=== PATIENT | female | born 1985 | race Caucasian/White ===

== ENCOUNTER 2020-07-12 16:35 | Emergency (ER) | payer OTHER, SELFPAY ==
[2020-07-12 16:48] VITALS: BP 137/89; PULSE 75; RESP 16; TEMP 36.7; O2SAT 99
--- NOTE | 2020-07-12 16:53 | ED.URI ---
HPI - URI/Sore Throat General Chief Complaint: Upper Respiratory Infection Stated Complaint: sore throat/chills/cough/[place] Time Seen by Provider: 07/12/20 16:53 Source: patient Mode of arrival: ambulatory Limitations: no limitations History of Present Illness HPI Narrative: Mihai Davis is a 35 yo female with a PMH of GERD for gastric sleeve who coms with fever, aches, chills, cough, headache that started o Thursday. 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 she has 2 children and her sister 5 years ago and she has her 3 teenaged children also Plan: test for strep and flu Related Data Home Medications Medication Instructions Recorded Confirmed omeprazole 20 mg PO DAILY 07/12/20 07/12/20 Allergies Allergy/AdvReac Type Severity Reaction Status Date / Time codeine Allergy Severe Other Verified 07/12/20 16:54 latex Allergy Mild RASH Verified 07/12/20 16:54 Lobster Allergy Mild SWELLING Uncoded 01/06/17 13:09 Shrimp Allergy Mild SHELLFISH Uncoded 01/06/17 13:09 CAUSE SWELLING Review of Systems Review of Systems: Narrative: CONSTITUTIONAL: Has fever, chills, sweats. EYES: Denies visual changes, redness, discharge. ENT: Denies rhinorrhea, has congestion, has sore throat, mild otalgia. CARDIOVASCULAR: Denies chest pain, palpitations, edema. RESPIRATORY: Denies dyspnea, wheezing, cough GASTROINTESTINAL: Denies abdominal pain, nausea, vomiting, diarrhea. GENITOURINARY: Denies dysuria, hematuria, abnormal discharge SKIN: Denies rash or itching. NEUROLOGIC: Denies numbness, or focal weakness. PSYCHIATRIC: Denies anxiety or depression. [facility] Past Medical History Medical History (Updated 07/12/20 @ 17:07 by Aziza Hernandez CNP) GERD (gastroesophageal reflux disease) Surgical History Surgical History (Updated 07/12/20 @ 17:03 by Aziza Hernandez CNP) H/O gastric bypass Family History Family History Father Hypertension Family history of elevated blood lipids Family history of cardiovascular disease Family history of throat cancer Mother Hypertension Grandparent Cerebrovascular accident Family history of malignant neoplasm of breast Family history of coronary artery disease Diabetes mellitus Other Family history of arthritis Family history of congestive heart failure Family history of malignant melanoma Social History Social History Second hand tobacco smoke exposure: No Alcohol intake: current Comments At time of signature, I agree with nursing past medical, surgical, social and family history. There is no relevant family history pertinent to the presenting complaint. Exam Narrative: Exam Narrative: GENERAL: This is a well-nourished, well-developed patient, in mild distress. HEAD: normocephalic, atraumatic. EYES: Sclera clear/white. Vision is grossly intact. EARS: External ears normal, auditory canals clear and without drainage, TMs normal without perforation. Hearing grossly intact. NOSE: External nose normal without nasal discharge, nares without redness, no rhinorrhea. THROAT: Mucous membranes moist, posterior pharynx erythema with no exudate NECK: Neck supple, CARDIOVASCULAR: Regular rate and rhythm without murmurs, gallops, or rubs. RESPIRATORY: Clear to auscultation. Breath sounds equal bilaterally. No wheezes, rales, or rhonchi. GASTROINTESTINAL: Abdomen soft, SKIN: warm, intact with no suspicious lesions or rash, good texture and turgor. NEURO: awake, alert, and oriented to person, place and time. There were no obvious focal neurologic abnormalities. Steady gait EXTREMITIES: Normal range of motion. BACK: Nontender without deformity Course Course Emergency Course: Patient came to E
== END 2020-07-12 17:25 | disposition home or self-care (01) ==
PROVIDERS: Emergency Provider Nurse Practitioner; PCP Physician Assistant
DX: J06.9 Acute upper respiratory infection, unspecified (principal); Z20.828 Contact with and (suspected) exposure to other viral communicable diseases; K21.9 Gastro-esophageal reflux disease without esophagitis; Z98.84 Bariatric surgery status
CPT/HCPCS: 87081; 87804; 87880; 99213; G0463

== ENCOUNTER 2020-12-03 16:00 | Outpatient (CLI) | payer OTHER, SELFPAY ==
--- NOTE | ~2020-12-03 | XR_ITS ---
EXAMINATION: XR hand LT min 3V DATE: 12/03/2020 16:18 INDICATION: Left hand pain and swelling post fall TECHNIQUE: Posteroanterior, oblique and lateral views of the left hand were obtained. COMPARISON: None. FINDINGS: Alignment is normal. No fracture. Joint spaces are normal. Soft tissues are unremarkable. IMPRESSION: 1. Negative left hand radiographs. Reviewed, dictated and finalized at location B.
== END 2020-12-03 16:01 | disposition home or self-care (01) ==
LOC: ANHIMG 16:07
PROVIDERS: PCP Physician Assistant; Visit Provider Student in an Organized Health Care Education/Training Program
DX: M79.89 Other specified soft tissue disorders (principal)
CPT/HCPCS: 73130

== ENCOUNTER 2022-12-17 01:26 | Day surgery (SDC) | payer OTHER, SELFPAY ==
[2022-12-15 13:05] VITALS: BMI 50.8
--- NOTE | 2022-12-15 13:11 | PC.NURSE ---
Report to the Outpatient Waiting Room, entrance under the green pavilion located off [facility], at time 1300 on date 12/17/22. Planned Procedure Time: 1500. Time changes happen often and if your time is changed the preop area will call you the afternoon before. - You and your visitor will be asked to self-screen and do not enter if you have any COVID symptoms. - A mask is optional within the hospital at this time. Patients may have clear liquids (water, carbonated beverages, clear teas, apple juice) until 3 hours prior to surgery with a maximum of 20 ounces. - No food from midnight until time of surgery Take the following medications with a SIP of water the morning of surgery: BUPROPION DO NOT STOP ANY OF YOUR OTHER PRESCRIPTION MEDICATIONS PRIOR TO SURGERY?EXCEPT THE FOLLOWING Medications to discontinue per physician: N/A Date to take last dose: N/A Please no make-up, nail northern irish, hairspray, perfume, deodorant, or body powder the day of surgery. No jewelry (including any body piercings) or valuables the day of surgery, leave them at home. Please take a shower or bath the night before, or the morning of, surgery with an antibacterial soap. Wear comfortable, loose fitting clothing. - Jewelry must be removed prior to entering the operating room. Rings and piercings that are not removed may be cut off. - The hospital will not accept responsibility for valuables. - Please leave all valuables, including medications, at home the day of surgery. If you are going home after surgery, a licensed crude oil driver must drive you home. - NO public transportation without another adult if you receive anesthesia. - We recommend that an adult stay with you for 24 hours following discharge. - We also recommend that you do not drive, make important decision, drink alcoholic beverages, or take any drugs that were not prescribed by your health care provider for at least 24 hours after your discharge time. Follow any additional instructions given to you from your surgeon. If you or anyone in your household have experienced Covid symptoms in the past week, please notify your surgeon or the nurse liaison at the phone number below for possible testing. Telephone instructions given to PT - DESTIN ALAN and asked if any additional questions and then verbalized understanding. Patient advised to call surgeon office or pre surgery nurse liaison [phone] if any additional questions.
[2022-12-17 12:00] VITALS: BP 147/94; PULSE 79; RESP 16; TEMP 36.2; O2SAT 100; BMI 52.1
[2022-12-17] MEDS: LACTATED RINGERS 1,000 ML 30 ML IV CONT (12:25)
[2022-12-17] MEDS: ACETAMINOPHEN 500 MG TABLET 1000 MG PO (12:31)
--- NOTE | 2022-12-17 12:46 | PM.IMHP ---
H&P: HPI History of Present Illness Date/Time: 12/17/22 12:46 Chief Complaint: Pain and bleeding Narrative: 37 y/o who has had a tubal ligation and endometrial ablation several years ago. She has begun to have heavy, painful episodes of vaginal bleeding which have not responded to two different combined oral contraceptives. She is interested in surgical management of her problem. Review of Systems Review of Systems: All systems reviewed & are unremarkable except as noted in HPI and below PMFSH Past Medical History Medical History GERD (gastroesophageal reflux disease) Obesity Surgical History Surgical History H/O gastric bypass History of bilateral tubal ligation History of cardiac radiofrequency ablation History of delivery History of cholecystectomy History of endometrial ablation History of tonsillectomy Family History Family History Father Hypertension Family history of elevated blood lipids Family history of cardiovascular disease Family history of throat cancer Mother Hypertension Grandparent Cerebrovascular accident Family history of malignant neoplasm of breast Family history of coronary artery disease Diabetes mellitus Other Family history of arthritis Family history of congestive heart failure Family history of malignant melanoma Social History Social History Smoking status: Never smoker Second hand tobacco smoke exposure: No Alcohol intake: current Drinks per week: 4 Substance use: never Substance use type: does not use Living arrangements: with family Additional living arrangements comments: CHILDREN Spiritual care concerns: No Meds Home Medications and Allergies Home Medications Medication Instructions Recorded Confirmed Type omeprazole 20 mg tablet,delayed 20 mg PO DAILY 07/12/20 12/15/22 History release bupropion HCl 300 mg 24 hr tablet, 300 mg PO DAILY 12/15/22 12/15/22 History extended release semaglutide (weight loss) 0.25 0.25 mg subcut WEEKLY 12/15/22 12/15/22 History mg/0.5 mL subcutaneous pen injector (Wegovy) Allergies Allergy/AdvReac Type Severity Reaction Status Date / Time codeine Allergy Severe Other Verified 12/15/22 13:04 latex Allergy Mild RASH Verified 12/15/22 13:04 Lobster Allergy Mild SWELLING Uncoded 12/15/22 13:04 Shrimp Allergy Mild SHELLFISH Uncoded 12/15/22 13:04 CAUSE SWELLING Exam Const: Orientation/consciousness: patient oriented x3 Other: Well-developed, well-nourished female in no acute distress. Neck: Thyroid: thyroid normal Lymphatic: no lymphadenopathy noted (in neck, axilla or inguinal nodes) Resp: Effort & Inspection: normal respiratory effort Auscultation: clear to auscultation bilaterally Cardio: Rate: regular rate Rhythm: regular rhythm Heart sounds: S1 normal heart sound present and S2 normal heart sound present GI: Other: ABD: Soft, nontender, nondistended. No guarding or rebound tenderness. No hepatosplenomegaly. : General: Yes no CVA tenderness Other: External genitalia: normal female hair distribution, without lesion. Urethral meatus: no lesion, non prolapsed. Bladder: no mass, nontender Vagina: well-estrogenized, without lesion or discharge. No cystocele or rectocele. Cervix: no lesion or discharge. Uterus: small, anteverted, freely mobile, nontender Adnexa: no mass or tenderness. Anus/perineum: no lesions, nontender Back/Spine/Pelvis: Back: no CVA tenderness Skin: General skin exam: normal color and no rashes or lesions noted Neuro: General: patient oriented x3 Extrem: Other: Extremities: nontender with no edema Psych: Mental Status: mental status grossly normal Affect: normal affect Assessment and
--- NOTE | 2022-12-17 12:50 | WPDHPUPDATE1 ---
History and Physical Update Update Date/Time: 12/17/22 12:50 History and Physical has been reviewed, including an updated exam of the patient. There are NO changes in the patient's condition. Risks, benefits, and alternatives have been discussed and questions answered. Patient agrees to proceed with procedure.
--- NOTE | 2022-12-17 13:29 | WPDANESEPPF ---
Anes - Initial Pre Proc Eval Procedure: Operation Date: 12/17/22 15:00 Proposed Procedures p Hysteroscopy Dilation and Curettage - Home Anderson MD Date/Time: 12/17/22 13:29 Surgeon: Home Anderson MD Pre Op Diagnosis: Excessive Bleeding Patient Data Age: 37 Gender: F Height: 1.68 m Weight: 146.5 kg Last Vital Signs Temp 36.2 C L 12/17/22 12:00 Pulse 79 12/17/22 12:00 Resp 16 12/17/22 12:00 BP 147/94 H 12/17/22 12:00 Pulse Ox 100 12/17/22 12:00 O2 Del Method Room Air 12/17/22 12:00 Allergies Allergy/AdvReac Type Severity Reaction Status Date / Time codeine Allergy Severe Other Verified 12/17/22 12:50 latex Allergy Mild RASH Verified 12/17/22 12:50 shellfish derived Allergy Mild Swelling Verified 12/17/22 12:51 Lobster Allergy Mild SWELLING Uncoded 12/15/22 13:04 Shrimp Allergy Mild SHELLFISH Uncoded 12/17/22 12:50 CAUSE SWELLING Home Medications Medication Instructions Recorded Confirmed Type omeprazole 20 mg tablet,delayed 20 mg PO DAILY 07/12/20 12/15/22 History release bupropion HCl 300 mg 24 hr tablet, 300 mg PO DAILY 12/15/22 12/15/22 History extended release semaglutide (weight loss) 0.25 0.25 mg subcut WEEKLY 12/15/22 12/15/22 History mg/0.5 mL subcutaneous pen injector (Wegovy) Patient hx anesthesia problems: none Family hx anesthesia problems: none Results Review: All pre-operative results and documents have been reviewed as part of the pre-operative evaluation. [facility] Past Medical History Medical History (Updated 12/17/22 @ 13:29 by Ruperto Tiwari MD) GERD (gastroesophageal reflux disease) Morbid obesity Surgical History Surgical History H/O gastric bypass History of bilateral tubal ligation History of cardiac radiofrequency ablation History of delivery History of cholecystectomy History of endometrial ablation History of tonsillectomy Family History Family History Father Hypertension Family history of elevated blood lipids Family history of cardiovascular disease Family history of throat cancer Mother Hypertension Grandparent Cerebrovascular accident Family history of malignant neoplasm of breast Family history of coronary artery disease Diabetes mellitus Other Family history of arthritis Family history of congestive heart failure Family history of malignant melanoma Social History Social History Smoking status: Never smoker Second hand tobacco smoke exposure: No Alcohol intake: current Drinks per week: 4 Substance use: never Substance use type: does not use Living arrangements: with family Additional living arrangements comments: CHILDREN Spiritual care concerns: No Anes - Eval Final PreProcedure Day of Procedure 12/17/22 13:29 Patient weight: morbidly obese Heart: regular rate and rhythm Lungs: clear to auscultation Airway: Mallampati scale class II Neurological: alert and oriented Last oral intake: >/= 8 hours ASA classification: III Emergent: no Anesthetic plan: proceed Anesthesia type and monitoring: general GIVS and standard monitoring Results Review: All pre-operative results and documents have been reviewed as part of the pre-operative evaluation. Informed Consent: The patient's anesthetic plan and its attendant risks and benefits were discussed with the patient/family/POA. Questions were solicited and answers provided to the satisfaction of the patient/family/POA.
[2022-12-17] MEDS: LIDOCAINE HCL 1% LOCAL INJ 20 ML VIAL 10 ML INFILTRATE (14:53)
--- NOTE | 2022-12-17 15:12 | P.OP_ITS ---
Procedure Note - Detailed Date of Procedure 12/17/22 Pre-op Diagnosis Menometrorrhagia Dysmenorrhea Post-op Diagnosis Same Procedure Performed Hysteroscopy Dilation and sharp curettage Surgeon Home Anderson MD Anesthesia MAC and Local (paracervical block with 1% lidocaine) Findings Cervix already dilated with a clot passing through the cervix at the start of the procedure. Thick endometrial tissue. Both tubal ostia seen. No obvious endometrial masses seen. Description of Procedure The patient was taken to the operating room where she was prepared and draped in the usual sterile fashion in the dorsal lithotomy position. A sterile speculum was placed into the vagina. A clot in the cervix was grasped with a ring forceps and removed and passed off to go with the specimen. The anterior lip of the cervix was grasped with single-tooth tenaculum. Ten mL of 1% lidocaine was administered in a paracervical block. The cervix did not require dilation. Hysteroscopy was performed using sterile saline as a distention medium. Findings are as noted above. Sharp curettage was then performed, and endometrial curettings were collected on a Telfa pad and passed off to be sent to pathology. Hemostasis was excellent. Sponge, lap, needle and instrument c ounts were correct. The patient was awakened and taken to the recovery room in stable condition. I was present and scrubbed through the entire procedure. Implants None Estimated Blood Loss 30 Drains No Packing No Pathology Yes (Endometrial curettings) Complications None Condition Stable Disposition PACU
[2022-12-17 15:13] VITALS: BP 136/80; PULSE 65; RESP 16; TEMP 36.3; O2SAT 100
[2022-12-17] MEDS: fentaNYL CITRATE INJ (*CRX) 100 MCG/2 ML VIAL 25 MCG IV PUSH ×2 (15:20→15:30)
[2022-12-17 15:43] VITALS: BP 136/80; PULSE 68; RESP 18; O2SAT 100
[2022-12-17 16:15] VITALS: BP 136/80; PULSE 68; RESP 16
== END 2022-12-17 16:25 | disposition home or self-care (01) ==
PROVIDERS: PCP Physician Assistant; Visit Provider Obstetrics & Gynecology
PROC: 0U5B8ZZ Destruction of Endometrium, Via Natural or Artificial Opening Endoscopic (ICD-10-PCS; CPT 58563; principal; 2022-12-17 15:00)
DX: N92.1 Excessive and frequent menstruation with irregular cycle (principal); N94.6 Dysmenorrhea, unspecified; K21.9 Gastro-esophageal reflux disease without esophagitis; Z79.899 Other long term (current) drug therapy; E66.01 Morbid (severe) obesity due to excess calories; Z68.43 Body mass index [BMI] 50.0-59.9, adult; Z98.84 Bariatric surgery status
CPT/HCPCS: 58558; 88305; A9270; J1885; J2250; J2704; J3010; J7120

== ENCOUNTER 2023-09-07 13:20 | Outpatient (CLI) | payer OTHER, SELFPAY ==
--- NOTE | ~2023-09-07 | MM_ITS ---
EXAMINATION: MM screening [facility] BI w madan HISTORY: Screening mammogram TECHNIQUE: Craniocaudal and mediolateral oblique 3-D tomosynthesis images were obtained and synthetic 2-D images were generated. CAD analysis was submitted and interpreted. COMPARISON: 03/29/2019 BREAST PARENCHYMAL COMPOSITION: There are scattered areas of fibroglandular density. FINDINGS: An intramammary lymph node is noted in the upper quadrant of the right breast. No suspiciou s mass, calcification, or architectural distortion are identified in either breast to suggest maligna ncy. There has been no suspicious interval change. IMPRESSION: 1. No mammographic evidence of malignancy. 2. Recommend routine screening mammography in one year. BI-RADS Category 2: Benign finding(s). Reviewed, dictated and finalized at location A. 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
== END 2023-09-07 13:21 | disposition home or self-care (01) ==
LOC: ANHIMG 13:24
PROVIDERS: PCP Physician Assistant; Visit Provider Obstetrics & Gynecology
DX: Z12.31 Encounter for screening mammogram for malignant neoplasm of breast (principal)
CPT/HCPCS: 77063; 77067

== ENCOUNTER 2024-12-11 08:53 | Emergency (ER) | payer BC, SELFPAY ==
--- NOTE | ~2024-12-11 | XR_ITS ---
XR chest 2V Ordering provider: SEA Mary History: 39 years Female with . cough x4 days, diminished Bilat bases/sob . Comparison: June 23, 2018 FINDINGS: MEDIASTINUM: The cardiac silhouette is not enlarged. LUNGS: No effusions or pneumothorax. Opacification in the right upper lobe suggestive of pneumonia. OTHER: No free air under the diaphragm. IMPRESSION: Right upper lobe pneumonia. Reviewed, dictated and finalized at location A. IMPRESSION: Right upper lobe pneumonia.
--- OUTSIDE RECORDS SUMMARY | 2024-12-11 08:56 | XMS_ITS | Clinical Summary ---
Author Organization [facility] Address [address] [place] [address] Care Team Providers Care Television Engineering Teacher Name Role Phone Unavailable Primary Care Provider Unavailabl e Medications semaglutide, weight loss, (Wegovy) 1.7 mg/0.75 mL Pen Injector Inject 1 pen injector subcutaneously once a week. 3 mL 4 Active tirzepatide, weight loss, (Zepbound) 2.5 mg/0.5 mL Pen Injector Inject 2.5 mg by subcutaneous injection every 7 days. 2 mL 07/17/2024 2:28 PM WHEEL INSPECTOR 4 Active tirzepatide, weight loss, (Zepbound) 5 mg/0.5 mL Pen Injector Inject 5 mg by subcutaneous injection every 7 days. 2 mL 08/02/2024 5:43 PM WHEEL INSPECTOR 4 Active tirzepatide, weight loss, (Zepbound) 5 mg/0.5 mL Pen Injector Inject 5 mg by subcutaneous injection every 7 days. 2 mL 4 Active tirzepatide, weight loss, (Zepbound) 7.5 mg/0.5 mL Pen Injector Inject 7.5 mg under the skin every 7 days. 2 mL 1 08/03/2024 6:26 PM WHEEL INSPECTOR 4 Active tirzepatide, weight loss, (Zepbound) 7.5 mg/0.5 mL Pen Injector Inject 7.5 mg by subcutaneous injection every 7 days. 2 mL 3 5 Active Encounters Date Type Department Care Team Description 11/16/2024 External Device Data [facility] ABSTRACTION Provider, Abstract 11/05/2024 External Device Data [facility] ABSTRACTION Provider, Abstract 11/04/2024 External Device Data [facility] ABSTRACTION Provider, Abstract 11/02/2024 External Device Data [facility] ABSTRACTION Provider, Abstract 10/19/2024 External Device Data [facility] ABSTRACTION Provider, Abstract 10/04/2024 External Device Data [facility] ABSTRACTION Provider, Abstract 09/21/2024 External Device Data [facility] ABSTRACTION Provider, Abstract 09/21/2024 External Device Data [facility] ABSTRACTION Provider, Abstract from Last 3 Months Social History Tobacco Use Types Packs/Day Years Used Date Smoking Tobacco: Never Assessed Comments Unknown Sex and Gender Information Value Date Recorded Sex Assigned at Not on file Legal Sex Female 3:49 PM CDT Gender Identity Not on file Sexual Orientation Not on file Plan of Treatment Health Maintenance Due Date Last Done Comments DTAP/TDAP/TD VACCINES (1 - Tdap) 2002 HEPATITIS B VACCINES (1 of 3 - 19+ 3-dose series) 2002 HPV/Cotest (21-29) 01/25/2004 PAP SMEAR 01/25/2004 CERVICAL CANCER SCREENING 2013 HPV/Cotest (30-65) 2013 PAP SMEAR 2013 BREAST CANCER SCREENING 2023 INFLUENZA VACCINE (#1) 2024 HPV VACCINES Aged Out No longer eligi ble based on patient's age to complete this topic PNEUMOCOCCAL VACCINE 0-49 YEARS Aged Out No longer eligible based on patient's age to complete this topic Insurance RX [employer] RX Member Subscriber Plan / Payer (Ef fective for All Dates) Name:Gina Davis Relation to Subscriber:Self Name:Gina Davis Payer ID:Not on file Group ID:[id number] Type:RX Commercial Address: [address] Medicare Part B RX [facility] Commercial RX [employer] Commercial
--- OUTSIDE RECORDS SUMMARY | 2024-12-11 08:56 | XMS_ITS | Clinical Summary ---
Author Organization [facility] [employer] [facility] Address [address] [place] [address] Care Team Providers Care Mosaic Floor Layer Name Role Phone Monica Olivo Primary Care Pr ovider Source Comments [facility],non-owned Affiliates and Associated Physician Practices is amultiple site organization consisting of ambulatory clinics and hospital sitesin [place], [place], [place] and [place]. This disclosure is being madepursuant to the Care Everywhere program and may not contain all information available regarding this patient. Last updated 18.[facility] Allergies Active Allergy Reactions Criticality Noted Date Comments Aspartame Other 06/08/2019 Migraines Doxycycline Diarrhea Latex Rash Medium 02/15/2019 Lisinopril Rash Medium 06/14/2019 Hot face and arms, flushing Shellfish Allergy Rash Medium 02/15/2019 Acetaminophen-Codeine Shortness of Breath High Medications * Be aware that medications may not be up to date on this document. Alwaysverify current medications with the patient. 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 Family History Medical History Relation Name Comments Cancer - Esophageal Father COPD - Chronic Obstructive Pulmonary Disease Mother Diabetes - Type 2 Mother Cancer - Other Sister Relation Name Status Comments Father Mother Sister Social History Tobacco Use Types Packs/Day Years Used Date Smoking Tobacco: Never Smokeless Tobacco: Never Alcohol Use Standard Drinks/Week Comments Yes 3 (1 standard drink = 0.6 oz pur e alcohol) on weekends Comments No Sex and Gender Information Value Date Recorded Sex Assigned at Not on file Legal Sex Female 8:46 AM CDT Gender Identity Not on file Sexual Orientation Not on file Last Filed Vital Signs Vital Sign Reading Time Taken Comments Blood Pressure 165/60 11/21/2022 1:46 PM CDT Pulse 80 03/14/2022 10:45 AM CDT Temperature 36.7 C (98 F) 11/21/2022 1:46 PM CDT Respiratory Rate 15 03/14/2022 10:4 5 AM CDT Oxygen Saturation 98% 11/21/2022 1:46 PM CDT Inhaled Oxygen Concentration - - Weight 153.2 kg (337 lb 12.8 oz) 11/21/2022 3:00 PM CDT Height 167.6 cm (5' 5.98 ) 11/21/2022 3:00 PM CD T Body Mass Index 54.55 11/21/2022 3:00 PM CDT Plan of Treatment Health Maintenance Due Date Last Done Comments LIPID TESTING 1985 MAMMOGRAM 1983 PAP SMEAR 1983 HIV SCREENING 1998 HEPATITIS C SCREENING 01/19/2001 DTAP/TDAP/TD VACCINES (1 - Tdap) 2002 HEPATITIS B VACCINE (1 of 3 - 19+ 3-dose series) 2002 SCREENING FOR DIABETES 05/19/2023 9, 06/09/2019, 06/08/2019, Additional history exists COVID-19 VACCINE (2023- season) 2024 09/10/2020, 08/20/2020 EGD SURVEILLANCE 05/09/2024 03/14/2022, , 08/01/2020, Additional history exists DEPRESSION SCREENING 08/31/2024 INFLUENZA VACCINE (Season Ended) 2025 06/22/2020, 08/31/2015 ZOSTER VACCINE (1 of 2) 2033 HIB VACCINE Aged Out No longer eligi ble based on patient's age to complete this topic HPV VACCINE Aged Out No longer eligi ble based on patient's age to complete this topic MENINGOCOCCAL (Group B) VACCINE SHARED DECISION-MAKING Aged Out No longer eligible based on patient's age to complete this topic MENINGOCOCCAL GROUPS A/C/Y/W VACCINE Aged Out No longer eligible based on patient's age to complete this topic PNEUMOCOCCAL VACCINE Aged Out No long er eligible based on patient's age to complete this topic Procedures Procedure Name Priority Date/Time Associated Diagnosis Comments EGD Routine 03/14/2022 9:12 AM CDT Gastroesophageal reflux disease without esophagitis BASIC METABOLIC PANEL (CALCIUM TOTAL) AM Draw 06/09/2019 4:36 AM CDT from Last 3 Months or Most Recently Relevant to Health Maintenance Results * EGD (03/14/2022 9:12 AM CDT) Report Endoscopy POC _ Patient Name: Gina Alan Procedure Date: 03/14/2022 9:12 AM Date of : 1985 Admit Type: Outpatient Age: 37 Gender: Female Attending MD: Rebel Lennon MD _ Procedure: Upper GI endoscopy Indications: Surveillance for malignancy secondary to Cm Syndrome, Hx of a gastric sleeve; hx of a duodenal polyp Providers: Rebel Lennon MD (Doctor) Referring MD: GABRIEL Chiang (Referring MD) Medicines: Monitored Anesthesia Care Complications: No immediate complications. _ Estimated Blood Loss: Estimated blood loss: none. Procedure: Pre-Anesthesia Assessment: - Prior to the procedure, a History and Physical was performed, and patient medications and allergies were reviewed. The patient is competent. The risks and benefits of the procedure and the sedation options and risks were discussed with the patient. All questions were answered and informed consent was obtained. Patient identification and proposed procedure were verified by the physician, the nurse and the dewaterer operator in the procedure room. Mental Status Examination: alert and oriented. Airway Examination: normal oropharyngeal airway and neck mobility. Respiratory Examination: clear to auscultation. CV Examination: normal. Prophylactic Antibiotics: The patient does not require prophylactic antibiotics. Prior Anticoagulants: The patient has taken no previous anticoagulant or antiplatelet agents. ASA Grade Assessment: III - A patient with severe systemic disease. After reviewing the risks and benefits, the patient was deemed in satisfactory condition to undergo the procedure. The anesthesia plan was to use monitored anesthesia care (MAC). Immediately prior to administration of medications, the patient was re-assessed for adequacy to receive sedatives. The heart rate, respiratory rate, oxygen saturations, blood pressure, adequacy of pulmonary ventilation, and response to care were monitored throughout the procedure. The physical status of the patient was re-assessed after the procedure. - Prior Aspirin/ NSAID therapy: The patient has taken no previous aspirin or NSAID medications. After obtaining informed consent, the endoscope was passed under direct vision. Throughout the procedure, the patient's blood pressure, pulse, and oxygen saturations were monitored continuously. The Endoscope was introduced through the mouth, and advanced to the second part of duodenum. The upper GI endoscopy was accomplished without difficulty. The patient tolerated the procedure well. Findings: The examined esophagus was normal. Evidence of a sleeve gastrectomy was found in the entire examined stomach. This was characterized by healthy appearing mucosa. A small hiatal hernia is noted. The duodenal bulb, second portion of the duodenum and third portion of the duodenum were normal. _ Impression: - Normal esophagus. - A sleeve gastrectomy was found, characterized by healthy appearing mucosa. - Small hiatal hernia - Normal duodenal bulb, second portion of the duodenum and third portion of the duodenum. - No specimens collected. Recommendation: - Perform a colonoscopy today. - Resume previous diet. - Continue present medications. - Patient has a contact number available for emergencies. The signs and symptoms of potential delayed complications were discussed with the patient. Return to normal activities tomorrow. Written discharge instructions were provided to the patient. Procedure Code(s): --- Professional --- 23022, Esophagogastroduod enoscopy, flexible, transoral; diagnostic, including collection of specimen(s) by brushing or washing, when performed (separate procedure) --- Technical --- 44130, Esophagogastroduod enoscopy, flexible, transoral; diagnostic, including collection of specimen(s) by brushing or washing, when performed (separate procedure) Diagnosis Code(s): --- Professional --- Z98.84, Bariatric surgery status Z15.09, Genetic susceptibility to other malignant neoplasm --- Technical --- Z98.84, Bariatric surgery status Z15.09, Genetic susceptibility to other malignant neoplasm CPT copyright 2019 [employer]. All rights reserved. The codes documented in this report are preliminary and upon electrical line mechanic review may be revised to meet current compliance requirements. Dr. Rebel Lennon MD Rebel Lennon MD 03/14/2022 10:15:57 AM This report has been signed electronically. Number of Addenda: 0 Note Initiated On: 03/14/2022 9:12 AM [facility] 03/14/2022 9:12 AM CDT us Rebel Lennon MD GI PROCEDURE ORDERABLES Messi sonny Result - Final Performing Organization Address City/[facility]/ZIP Co de Phone Number [facility] [place] [address] * (ABNORMAL) BASIC METABOLIC PANEL (CALCIUM TOTAL) (06/09/2019 4:36 AM CDT) Glucose 112(H) 74 - 106 mg/dL 06/09/2019 5:16 AM CDT [facility] Sodium 135(L) 136 - 145 mmol/L 06/09/2019 5:16 AM CDT [facility] Potassium 4.2 3.5 - 5.1 mmol/L 06/09/2019 5:16 AM CDT [facility] Chloride 102 98 - 107 mmol/L 06/09/2019 5:16 AM CDT [facility] CO2 25 23 - 31 mmol/L 06/09/2019 5:16 AM CDT [facility] Calcium 9.2 8.4 - 10.2 mg/dL 06/09/2019 5:16 AM CDT [facility] Anion Gap 8 8 - 16 mmol/L 06/09/2019 5:16 AM CDT [facility] BUN 6(L) 7 - 18.7 mg/dL 06/09/2019 5:16 AM CDT [facility] Creatinine 0.73 0.57 - 1.11 mg/dL 06/09/2019 5:16 AM CDT [facility] eGFR by MDRD >60 >60 mL/min/1.7 3m2 06/09/2019 5:16 AM CDT [facility] eGFR by MDRD >60 >60 mL/min/1.7 3m2 06/09/2019 5:16 AM CDT [facility] Blood BLOOD SPECIMEN / Unknown Venipuncture / Unknown 06/09/2019 4:36 AM CDT 06/09/2019 4:47 AM CDT us Nhan Gilliland MD LAB - CHEMISTRY ORDERABLES F inal Result [facility] [address] [place] [address] from Last 3 Months or Most Recently Relevant to Health Maintenance Insurance AETNA AETNA Advance Directives * Full Code (Latest Code Status on File) Date Activated Date Inactivated Comments 06/08/2019 1:37 PM 06/09/2019 6:22 PM Care Teams Mosaic Floor Layer Relationship Specialty Start Date End Date Monica Olivo PA [address] [place] [address] [place] [id number] PCP - General Physician Lead Vulcanizing Operator 02/28/19
--- OUTSIDE RECORDS SUMMARY | 2024-12-11 08:56 | XMS_ITS | Clinical Summary ---
Author Organization [facility] Address [address] [place] [address] Care Team Providers Care Web Services Developer Name Role Phone Zahrasofi Monica GABRIEL Primary Care Provider [phone] Allergies Active Allergy Reactions Criticality Noted Date Comments Acetaminophen-Codeine Chest pressure,Shortness of Breath High 12/16/2020 Aspartame Other (see comment) 06/08/2019 Migraines Doxycycline Diarrhea 12/16/2020 Latex Rash Medium 02/15/2019 Lisinopril Rash Medium 06/14/2019 Hot face and arms, flushing Shellfish Allergy Rash Medium 02/15/2019 lobster Medications omeprazole 20 MG capsule Take 20 mg by mouth daily. Active methocarbamol (ROBAXIN-750) 750 MG Tab Take 1 tablet (750 mg total) by mouth 3 (three) times daily as needed. 40 tablet 05/05/2022 Active Active Problems Problem Noted Date Diagnosed Date GERD (gastroesophageal reflux disease) 2 Cm syndrome 02/05/2022 Essential (primary) hypertension 02/05/2022 Palpitations 12/21/2020 SVT (supraventricular tachycardia) ([facility]) Immunizations Immunization Administration Dates Next Due Influenza (Generic) 08/31/2015 Influenza Adult (Generic) 06/22/2020 PFIZER COVID-19 (ORIGINAL FO RMULATION, PURPLE CAP) mRNA, LNP-S, PF, 30 MCG/0.3 ML DOSE 09/10/2020,08/20/2020 Family History Medical History Relation Comments Aneurysm Brother Aneurysm Father Heart Attack Paternal Grandfather Stroke Paternal Grandmother Relation Status Comments Brother Alive Father (Age 68) pacemaker Maternal Grandfather Maternal Grandmother Mother Alive chf and atrial f ib Paternal Grandfather Paternal Grandmother Sister (Age 36) Social History Tobacco Use Types Packs/Day Years Used Date Smoking Tobacco: Never Smokeless Tobacco: Never Alcohol Use Standard Drinks/Week Comments Yes 0 (1 standard drink = 0.6 oz pur e alcohol) vodka, whisky 1-2 per week Comments Unknown Sex and Gender Information Value Date Recorded Sex Assigned at Not on file Legal Sex Female 9:32 PM CDT Gender Identity Not on file Sexual Orientation Not on file Last Filed Vital Signs Vital Sign Reading Time Taken Comments Blood Pressure 136/66 05/05/2022 12:41 PM CDT Pulse 60 05/05/2022 12:41 PM CDT Temperature 36.7 C (98 F) 05/05/2022 12:41 PM CDT Respiratory Rate 20 05/05/2022 12:41 PM CDT Oxygen Saturation 99% 05/05/2022 12:41 PM CDT Inhaled Oxygen Concentration - - Weight 132.5 kg (292 lb) 05/05/2022 10:43 AM CDT Height 167.6 cm (5' 6 ) 05/05/2022 10:43 AM CDT Body Mass Index 47.13 05/05/2022 10:43 AM CDT Plan of Treatment Health Maintenance Due Date Last Done Comments Cervical Cancer Screening Pa p Smear (Age 30 to 64) Every 3 Years 1983 Annual Physical 1986 Hepatitis C 2001 DTaP, Tdap and Td Vaccines ( 1 - Tdap) 2002 Hepatitis B Vaccines (1 of 3 - 19+ 3-dose series) 2002 Cervical Cancer Screening Pa p with HPV Testing (Age 30 to 64) Every 5 Years 2013 Cervical Cancer Screening wi th HPV 2013 Mammogram Screening 2023 COVID-19 Vaccine (3 - 2023-2 5 season) 2024 09/10/2020, 08/20/2020 HPV Vaccines Aged Out No longer eligi ble based on patient's age to complete this topic Meningococcal B Vaccine Aged Out No l onger eligible based on patient's age to complete this topic Meningococcal Vaccine Aged Out No foreign branden eligible based on patient's age to complete this topic Pneumococcal Vaccine: Pediatrics (0 to 5 Years) and At-Risk Patients (6 to 49 Years) Aged Out No longer eligible b ased on patient's age to complete this topic RSV Immunizations Under 20 Months Aged Out No longer eligible b ased on patient's age to complete this topic Insurance AETNA Advance Directives * Full Code (Latest Code Status on File) Date Activated Date Inactivated Comments 01/07/2021 4:32 PM 01/07/2021 9:29 PM Care Teams Web Services Developer Relationship Specialty Start Date End Date Monica Garcia PA [address] [place] [address] PCP - General PHYSICIAN CHIEF ORDER DISPATCHER 12/16/20
[2024-12-11 09:14] VITALS: BP 159/100; PULSE 74; RESP 18; TEMP 36.4; O2SAT 99
--- NOTE | 2024-12-11 09:31 | ED.URI ---
HPI - URI/Sore Throat General Chief Complaint: Upper Respiratory Infection Stated Complaint: cold symptoms Time Seen by Provider: 12/11/24 09:25 Source: patient and RN notes reviewed Mode of arrival: ambulatory Limitations: no limitations History of Present Illness HPI Narrative: Patient presents today with a 4 day history of dry cough that has been worse over the past 2 days. She developed nasal congestion and shortness of breath with exertion yesterday. Denies fever. Two days ago she started on azithromycin. She has also been taking Mucinex with minimal relief. No history of asthma or COPD. She is a nonsmoker. Patient did a home COVID test yesterday that was negative Related Data Home Medications ?Medication ?Instructions ?Recorded ?Confirmed ?Last Taken ?Type omeprazole 20 mg tablet,delayed 20 mg PO DAILY 07/12/20 12/15/22 Unknown History release bupropion HCl 300 mg 24 hr tablet, 300 mg PO DAILY 12/15/22 12/15/22 Unknown History extended release Allergies Allergy/AdvReac Type Severity Reaction Status Date / Time codeine Allergy Severe Other Verified 12/11/24 09:16 latex Allergy Mild RASH Verified 12/11/24 09:16 shellfish derived Allergy Mild Swelling Verified 12/11/24 09:16 Review of Systems Review of Systems: CONSTITUTIONAL: Denies body aches, fever, chills, or sweats. EYES: Denies visual changes, redness, or discharge. ENT: Denies rhinorrhea, sore throat, or otalgia.+ congestion CARDIOVASCULAR: Denies chest pain, palpitations, or edema. RESPIRATORY:+ cough, shortness of breath with exertion GASTROINTESTINAL: Denies abdominal pain, nausea, vomiting, or diarrhea. GENITOURINARY: Denies dysuria or hematuria. SKIN: Denies rash, itching, or wounds. MUSCULOSKELETAL: Denies back pain, joint pain, or myalgia. NEUROLOGIC: Denies headache, numbness, tingling, or weakness. PSYCH: Denies depression or anxiety. [facility] Past Medical History Medical History Morbid obesity GERD (gastroesophageal reflux disease) Surgical History Surgical History History of delivery History of tonsillectomy History of cholecystectomy History of cardiac radiofrequency ablation History of bilateral tubal ligation History of endometrial ablation H/O gastric bypass Family History Family History Father Hypertension Family history of elevated blood lipids Family history of cardiovascular disease Family history of throat cancer Mother Hypertension Grandparent Cerebrovascular accident Family history of malignant neoplasm of breast Family history of coronary artery disease Diabetes mellitus Other Family history of arthritis Family history of congestive heart failure Family history of malignant melanoma Social History Social History (Reviewed 12/11/24 @ 09:32 by Misa Duran, [facility], ) Smoking status: Never smoker Second hand tobacco smoke exposure: No Alcohol intake: current Drinks per week: 4 Substance use: never Substance use type: does not use Living arrangements: with family Additional living arrangements comments: CHILDREN Spiritual care concerns: No Comments At time of signature, I have reviewed and agree with nursing past medical, surgical, social and family history unless otherwise noted. Please see nursing chart for further information. There is no relevant family history pertinent to the presenting complaint Exam Narrative: GENERAL: Mildly ill-appearing, well-nourished, and in no acute distress. HEAD: Normocephalic, atraumatic. EYES: EOMI. No redness or drainage. Conjunctivae normal. ENT: Mucous membranes pink and moist. Nares congestive. No rhinorrhea. TMs normal bilaterally. Throat normal. Uvula midline. NECK: Normal AROM. Supple. No lymphadenopathy. CHEST: No respiratory distress. Diminished in the bilateral bases, otherwise clear HEART: Regular rate and rhythm. No murmur appreciated. EXTREMITIES: Normal range of motion. No edema. SKIN: Warm, dry, no rash. Capillary refill normal. Normal skin turgor. NEURO: No focal deficits. Alert and oriented x3. Gait steady. PSYCH: Normal affect. No signs of depression or anxiety. Course Course Level of Care: Express Care Visit Vital Signs Vital signs: Vital Signs Temperature 97.6 F 12/11/24 09:14 Pulse Rate 74 12/11/24 09:14 Respiratory Rate 18 12/11/24 09:14 Blood Pressure 159/100 H 12/11/24 09:14 Pulse Oximetry 99 12/11/24 09:14 Oxygen Delivery Room Air 12/11/24 09:14 Temperature 97.6 F 12/11/24 09:14 Pulse Rate 74 12/11/24 09:14 Respiratory Rate 18 12/11/24 09:14 Blood Pressure 159/100 H 12/11/24 09:14 Pulse Oximetry 99 12/11/24 09:14 Oxygen Delivery Room Air 12/11/24 09:14 Reviewed MDM - URI/Sore Throat MDM Narrative Medical decision making narrative: Chest x-ray shows right upper lobe pneumonia. Patient will continue the azithromycin as prescribed and a prescription for Augmentin will be added. Will also add a prescription for an albuterol inhaler to help with her to shortness of breath with exertion. Anticipatory guidance and ED precautions given. Differential Diagnosis Differential diagnosis: Likely upper respiratory infection, viral infection, bronchitis and other (Pneumonia) Imaging Data Radiologist's impression: ITS Impressions Chest X-Ray 12/11/24 09:42 IMPRESSION: Right upper lobe pneumonia. Critical Care Time Critical Care Time Critical Care Time: No Discharge Plan Discharge Clinical Impression: Pneumonia Qualifiers: Pneumonia type: due to unspecified organism Laterality: right Lung location: upper lobe of lung Qualified Code(s): J18.9 - Pneumonia, unspecified organism Patient Disposition: Home Condition: Stable Instructions: Community Acquired Pneumonia (DC) Additional Instructions: Your x-ray shows pneumonia. Please continue the azithromycin. Start the Augmentin and take as directed. Continue Mucinex to help break up any chest congestion. Use albuterol inhaler as needed. Follow-up with your PCP in 3 days if symptoms are not improving. As discussed, please go to the ER immediately if symptoms worsen. Your blood pressure was elevated above 120/80 today at Urgent Care. This puts you above the threshold for follow up. Please schedule a followup visit with your personal physician as soon as possible, for further evaluation and treatment. Even blood pressure exceeding 120/80 may indicate pre-hypertension. Patient Language: Romansh Prescriptions: New albuterol sulfate 90 mcg/actuation HFA aerosol inhaler 2 inh inhalation Q4-6H PRN (Reason: shortness of breath or wheezing) Qty: 8.5 0RF amoxicillin-pot clavulanate 875-125 mg tablet 1 tablet PO Q12H 7 Days Qty: 14 0RF (DME) BreatheRite MDI Spacer Spacer See Rx Instructions .ROUTE .MEDSUPPLY Qty: 1 0RF Rx Instructions: As directed No Action omeprazole 20 mg Tablet,Delayed Release (Dr/Ec) 20 mg PO DAILY bupropion HCl 300 mg tablet extended release 24 hr 300 mg PO DAILY Follow-up/Referrals: Radha,GARCIA Anderson [Primary Care Provider] - Stand Alone Forms: Work/School Release IP Time of Disposition: 09:56
[2024-12-11 10:00] VITALS: BP 145/103
== END 2024-12-11 10:00 | disposition home or self-care (01) ==
PROVIDERS: Emergency Provider Nurse Practitioner; PCP Physician Assistant
DX: J18.9 Pneumonia, unspecified organism (principal); K21.9 Gastro-esophageal reflux disease without esophagitis; E66.01 Morbid (severe) obesity due to excess calories; Z68.43 Body mass index [BMI] 50.0-59.9, adult
CPT/HCPCS: 71046; 99213; G0463

== ENCOUNTER 2024-12-22 16:44 | Outpatient (CLI) | payer BC, SELFPAY ==
--- NOTE | ~2024-12-22 | XR_ITS ---
XR shoulder RT min 2V Ordering provider: Ruperto Cleveland MD History: . SHOULDER AND NECK PAIN . Comparison: None. FINDINGS: BONES: Lucency is projected over the distal right clavicle which may be summation shadow. Evaluation for tenderness in the area to exclude a fracture is advised. JOINT SPACES: The acromioclavicular join t is normal. The glenohumeral joint is normal. SOFT TISSUES: Normal. IMPRESSION: No definite acute osseous abnormality right shoulder. Lucency projected over the distal right clavicle. Evaluation for tenderness is advised. Reviewed, dictated and finalized at location A.
--- NOTE | ~2024-12-22 | XR_ITS ---
XR_CERV2-3V_CR Ordering provider: Ruperto Cleveland MD History: . SHOULDER AND NECK PAIN . Comparison: None. FINDINGS: VERTEBRAL BODIES: Normal height and alignment. No visible fracture or subluxation. The dens is intact . DISK SPACES: Well maintained. PARASPINOUS SOFT TISSUES: No prevertebral soft tissue swelling. IMPRESSION: No acute osseous abnormality cervical spine. Reviewed, dictated and finalized at location A.
--- OUTSIDE RECORDS SUMMARY | 2024-12-22 17:26 | XMS_ITS | Clinical Summary ---
Author Organization [facility] Address [address] [place] [address] Care Team Providers Care Hotel Controller Name Role Phone Zahrasofi Monica GABRIEL Primary Care Provider [phone] Allergies Active Allergy Reactions Criticality Noted Date [...] hypertension 02/05/2022 Palpitations 12/21/2020 SVT (supraventricular tachycardia) ([facility]) Immunizations Immunization Administration Dates Next Due Influenza [...] 4:32 PM 01/07/2021 9:29 PM Care Teams Hotel Controller Relationship Specialty Start Date End Date Monica Garcia PA [address] [place] [address] PCP - General PHYSICIAN MOLD CHANGER 12/16/20
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
--- OUTSIDE RECORDS SUMMARY | 2024-12-22 17:26 | XMS_ITS | Clinical Summary ---
Author Organization [employer] [facility] Address [address] [place] [address] Care Team Providers Care Tactical Air Control Party Manager Name Role Phone Unavailable Primary Care Provider Unavailabl e Medications semaglutide, weight loss, (Wegovy) 1.7 mg/0.75 mL Pen Injector Inject 1 pen injector subcutaneously once a week. 3 mL 4 Active tirzepatide, weight loss, (Zepbound) 2.5 mg/0.5 mL Pen Injector Inject 2.5 mg by subcutaneous injection every 7 days. 2 mL 07/17/2024 2:28 PM INFECTIOUS DISEASE PHYSICIAN 4 Active tirzepatide, weight loss, (Zepbound) 5 mg/0.5 mL Pen Injector Inject 5 mg by subcutaneous injection every 7 days. 2 mL 08/02/2024 5:43 PM INFECTIOUS DISEASE PHYSICIAN 4 Active tirzepatide, weight loss, (Zepbound) 5 mg/0.5 mL Pen Injector Inject 5 mg by subcutaneous injection every 7 days. 2 mL 4 Active tirzepatide, weight loss, (Zepbound) 7.5 mg/0.5 mL Pen Injector Inject 7.5 mg under the skin every 7 days. 2 mL 1 08/03/2024 6:26 PM INFECTIOUS DISEASE PHYSICIAN 4 Active tirzepatide, weight loss, (Zepbound) 7.5 [...] 19+ 3-dose series) 2002 HPV/Cotest (21-29) 01/25/2004 CERVICAL CANCER SCREENING 2013 HPV/Cotest (30-65) [...] on file Group ID:[id number] Type:RX Commercial Address: [address] [place] [facility] [employer] DATA Medicare Part B RX PHARMACY [employer] Commercial RX [employer] Commercial
--- OUTSIDE RECORDS SUMMARY | 2024-12-22 17:26 | XMS_ITS | Clinical Summary ---
Author Organization [facility] [employer] Address [address] [place] [address] Care Team Providers Care Data Quality Consultant Name Role Phone Monica Olivo Primary Care Pr ovider Source Comments [facility] [employer],non-owned Affiliates and Associated Physician Practices is amultiple site organization consisting of ambulatory clinics and hospital sitesin [place], [place], [place] and [place]. This disclosure is being madepursuant to the Care Everywhere program and may not contain all information available regarding this patient. Last updated 18.[facility] [employer] Allergies Active Allergy Reactions Criticality Noted Date [...] by the physician, the nurse and the bookkeeping teacher in the procedure room. Mental Status Examination: [...] the patient. Procedure Code(s): --- Professional --- 10076, Esophagogastroduod enoscopy, flexible, transoral; diagnostic, including collection of specimen(s) by brushing or washing, when performed (separate procedure) --- Technical --- 25753, Esophagogastroduod enoscopy, flexible, transoral; diagnostic, including collection of specimen(s) by brushing or washing, when performed (separate procedure) Diagnosis Code(s): --- Professional --- Z98.84, Bariatric surgery status Z15.09, Genetic susceptibility to other malignant neoplasm --- Technical --- Z98.84, Bariatric surgery status Z15.09, Genetic susceptibility to other malignant neoplasm CPT copyright 2019 [employer]. All rights reserved. The codes documented in this report are preliminary and upon pattern setter review may be revised to meet current compliance requirements. Dr. Rebel Lennon MD Rebel Lennon MD 03/14/2022 10:15:57 AM This report has been signed electronically. Number of Addenda: 0 Note Initiated On: 03/14/2022 9:12 AM [facility] 03/14/2022 9:12 AM CDT us Rebel Lennon MD GI PROCEDURE ORDERABLES Messi sonny Result - Final Performing Organization Address City/[facility]/ZIP Co de Phone Number [facility] [place] [address] * (ABNORMAL) BASIC METABOLIC PANEL (CALCIUM TOTAL) (06/09/2019 4:36 AM CDT) Glucose 112(H) 74 - 106 mg/dL 06/09/2019 5:16 AM CDT [facility] Sodium 135(L) 136 - 145 mmol/L 06/09/2019 5:16 AM CDT [facility] Potassium 4.2 3.5 - 5.1 mmol/L 06/09/2019 5:16 AM CDT [facility] Chloride 102 98 - 107 mmol/L 06/09/2019 5:16 AM CDT [facility] CO2 25 23 - 31 mmol/L 06/09/2019 5:16 AM CDT [facility] Calcium 9.2 8.4 - 10.2 mg/dL 06/09/2019 5:16 AM CDT [facility] Anion Gap 8 8 - 16 mmol/L 06/09/2019 5:16 AM CDT [facility] BUN 6(L) 7 - 18.7 mg/dL 06/09/2019 5:16 AM CDT [facility] Creatinine 0.73 0.57 - 1.11 mg/dL 06/09/2019 5:16 AM CDT [facility] eGFR by MDRD >60 >60 mL/min/1.7 3m2 06/09/2019 5:16 AM CDT [facility] eGFR by MDRD >60 >60 mL/min/1.7 3m2 06/09/2019 5:16 AM CDT [facility] Blood BLOOD SPECIMEN / Unknown Venipuncture / Unknown 06/09/2019 4:36 AM CDT 06/09/2019 4:47 AM CDT us Nhan Gilliland MD LAB - CHEMISTRY ORDERABLES F inal Result [facility] [address] [place] [address] from Last 3 Months or Most Recently Relevant to Health Maintenance Insurance AETNA AETNA Advance Directives * Full Code (Latest Code Status on File) Date Activated Date Inactivated Comments 06/08/2019 1:37 PM 06/09/2019 6:22 PM Care Teams Data Quality Consultant Relationship Specialty Start Date End Date Monica Olivo PA [address] [place] [address] [place] [id number] PCP - General Physician Hair Spinning Machine Operator 02/28/19
== END 2024-12-22 16:45 | disposition home or self-care (01) ==
PROVIDERS: PCP Physician Assistant; Visit Provider Obstetrics & Gynecology
DX: M25.511 Pain in right shoulder (principal); M54.2 Cervicalgia
CPT/HCPCS: 72040; 73030

== ENCOUNTER 2025-02-27 10:48 | Outpatient (CLI) | payer BC, SELFPAY ==
--- NOTE | ~2025-02-27 | MM_ITS ---
EXAMINATION: MM screening noah BI w madan HISTORY: Screening mammogram TECHNIQUE: Craniocaudal and mediolateral oblique 3-D tomosynthesis images were obtained and synthetic 2-D images were generated. CAD analysis was submitted and interpreted. COMPARISON: 09/07/2023 BREAST PARENCHYMAL COMPOSITION:Not Dense. There are scattered areas of fibroglandular density. FINDINGS: No suspicious mass, calcification, or architectural distortion are identified in either jonathan ast to suggest malignancy. There has been no suspicious interval change. IMPRESSION: No mammographic evidence of malignancy. Recommend routine screening mammography in one year. BI-RADS Category 1: Negative Reviewed, dictated and finalized at location .
--- OUTSIDE RECORDS SUMMARY | 2025-02-27 11:26 | XMS_ITS | Clinical Summary ---
Author Organization [facility] [employer] Address [address] [place] [address] Care Team Providers Care Organization Development Consultant Name Role Phone Monica Olivo Primary Care Pr ovider Source Comments [facility],non-owned Affiliates and Associated Physician Practices is amultiple site organization consisting of ambulatory clinics and hospital sitesin [place], [place], [place] and [place]. This disclosure is being madepursuant to the Care Everywhere program and may not contain all information available regarding this patient. Last updated 18.[facility] [employer] Allergies Active Allergy Reactions Criticality Noted Date [...] 3:00 PM CDT Height 167.6 cm (5' 5.98) 11/21/2022 3:00 PM CD T Body Mass Index 54.55 11/21/2022 3:00 PM CDT Plan of Treatment Health Maintenance Due Date Last Done Comments LIPID TESTING 1983 MAMMOGRAM 1983 HIV SCREENING 1998 HEPATITIS C SCREENING 01/19/2001 DTAP/TDAP/TD VACCINES (1 - Tdap) 2002 HEPATITIS B VACCINE (1 of 3 - 19+ 3-dose series) 2002 PAP SMEAR 01/25/2004 SCREENING FOR DIABETES 12/17/2023 , 12/16/2020, 06/09/2019, Additional history exists COVID-19 VACCINE ( season) 2024 09/10/2020, 08/20/2020 EGD SURVEILLANCE 05/09/2024 [...] Report Endoscopy POC _ Patient Name: Gina Davis Procedure Date: 03/14/2022 9:12 AM Date of [...] by the physician, the nurse and the school of nursing director in the procedure room. Mental Status Examination: [...] the patient. Procedure Code(s): --- Professional --- 50660, Esophagogastroduod enoscopy, flexible, transoral; diagnostic, including collection of specimen(s) by brushing or washing, when performed (separate procedure) --- Technical --- 98119, Esophagogastroduod enoscopy, flexible, transoral; diagnostic, including collection of specimen(s) by brushing or washing, when performed (separate procedure) Diagnosis Code(s): --- Professional --- Z98.84, Bariatric surgery status Z15.09, Genetic susceptibility to other malignant neoplasm --- Technical --- Z98.84, Bariatric surgery status Z15.09, Genetic susceptibility to other malignant neoplasm CPT copyright 2019 [employer]. All rights reserved. The codes documented in this report are preliminary and upon construction engineering manager review may be revised to meet current compliance requirements. Dr. Rebel Lennon MD Rebel Lennon MD 03/14/2022 10:15:57 AM This report has been signed electronically. Number of Addenda: 0 Note Initiated On: 03/14/2022 9:12 AM [facility] 03/14/2022 9:12 AM CDT us Rebel Lennon MD GI PROCEDURE ORDERABLES Messi sonny Result - Final [facility] [place] [address] * (ABNORMAL) BASIC METABOLIC PANEL (CALCIUM TOTAL) (06/09/2019 4:36 AM CDT) Glucose 112(H) 74 - 106 mg/dL 06/09/2019 5:16 AM CDT [facility] Sodium 135(L) 136 - 145 mmol/L 06/09/2019 5:16 AM CDT [facility] Potassium 4.2 3.5 - 5.1 mmol/L 06/09/2019 5:16 AM CDT [facility] Chloride 102 98 - 107 mmol/L 06/09/2019 5:16 AM CDT [facility] CO2 25 23 - 31 mmol/L 06/09/2019 5:16 AM CDT [facility] Calcium 9.2 8.4 - 10.2 mg/dL 06/09/2019 5:16 AM CDT [facility] Anion Gap 8 8 - 16 mmol/L 06/09/2019 5:16 AM CDT [facility] BUN 6(L) 7 - 18.7 mg/dL 06/09/2019 5:16 AM CDT [facility] Creatinine 0.73 0.57 - 1.11 mg/dL 06/09/2019 5:16 AM CDT [facility] eGFR by MDRD >60 >60 mL/min/1.7 3m2 06/09/2019 5:16 AM CDT [facility] eGFR by MDRD >60 >60 mL/min/1.7 3m2 06/09/2019 5:16 AM CDT [facility] Blood BLOOD SPECIMEN / Unknown Venipuncture / Unknown 06/09/2019 4:36 AM CDT 06/09/2019 4:47 AM CDT us Nhan Gilliland MD LAB - CHEMISTRY ORDERABLES F inal Result [facility] [address] [place] [id number] from Last 3 Months or Most Recently Relevant to Health Maintenance Insurance AETNA AETNA Advance Directives * Full Code (Latest Code Status on File) Date Activated Date Inactivated Comments 06/08/2019 1:37 PM 06/09/2019 6:22 PM Care Teams Organization Development Consultant Relationship Specialty Start Date End Date Monica Olivo PA [address] [place] [address] [place] [phone] PCP - General Physician Release Specialist 02/28/19
--- OUTSIDE RECORDS SUMMARY | 2025-02-27 11:26 | XMS_ITS | Data Portability ---
Author Organization [facility] Address [address] [facility] [place] [address] Care Team Providers Care Clip Coater Name Role Phone LETITIA NUÑEZ Primary Care Provider Unavailab le Assessment No assessment recorded. Plan of Treatment Reminders Order Date Submit Date Provider Last Modified By Organization Details Last Modified Time Details Appointments ANY 15 2024 11:30A M GABRIEL Saleh Not available Not available Not available Lab iron + TIBC + ferrit in, serum 2024 025 JAYNA [facility], [address] [place] [address], [address], [place], [address], 01/31/2025 12:48:00 cobala min and folate panel, serum 2024 025 [facility], [address] [place] [address], [facility] [address], [place], [address], 01/31/2025 12:48:32 HbA1c (hemog lobin A1c), blood 2024 [facility], [address] [place] [address], [address], [place], [address], 01/31/2025 12:48:25 Referral None record ed. Procedures home sleep testin g (PROC) 2024 025 [facility], [address] [place] [address], [address], [place], [address], 02/17/2025 17:42:51 Surgeries None record ed. Imaging None record ed. Medication Orders atenol ol 50 mg-chl orthal idone 25 mg tablet 2024 025 JAYNA [id number], [address] [place], [place], [id number], 01/16/2025 15:33:01 Patient TargetsNo targets recorded. Patient Instructions Encounter Date Encounter Id Patient Instructions Last Modified By Organization Details Last Modified Time 01/16/2025 [id number] A healthy lifestyle: care instructions [email or web address] Not available 01/16/2025 15:32:46 Reason for Referral None Reported. Results Created Date Observation Date Name Description Value Unit Range Abnormal Flag Note LastModifiedBy Organization Detail LastModifiedTime 02/14/2002/13/2025 Lacta te [Mole s/vol ume] in Serum or Plasm a lactate [moles/volum e] in serum or plasma 1.2 text: 0.4 - 2.0 mmol/L Not Available Not Available 02/13/2025 22:23:25 02/14/20 25 02/13/2025 Compr ehens yogesh metab olic 1999 panel - Serum or Plasm a glucose [mass/volume ] in serum or plasma 110 text: 70 - 99 mg/dL high Not Available Not Available 02/13/2025 22:23:25 02/14/20 25 02/13/2025 Compr ehens yogesh metab olic 1999 panel - Serum or Plasm a urea nitrogen [mass/volume ] in serum or plasma 9 text: 7 - 18 mg/dL Not Available Not Available 02/13/2025 22:23:25 02/14/20 25 02/13/2025 Compr ehens yogesh metab olic 1999 panel - Serum or Plasm a creatinine [mass/volume ] in serum or plasma 0.99 text: 0.55 - 1.02 mg/dL Not Available Not Available 02/13/2025 22:23:25 02/14/20 25 02/13/2025 Compr ehens yogesh metab olic 2000 panel - Serum or Plasm a sodium [moles/volum e] in serum or plasma 133 text: 136 - 145 mmol/L low Not Available Not Available 02/13/2025 22:23:25 02/14/20 25 02/13/2025 [facility] [employer] yogesh [employer] olic 1999 panel - Serum or Plasm a potassium [moles/volum e] in serum or plasma 3.3 text: 3.5 - 5.1 mmol/L low Not Available Not Available 02/13/2025 22:23:25 02/14/20 25 02/13/2025 [facility] [employer] yogesh [employer] olic 1999 panel - Serum or Plasm a chloride [moles/volum e] in serum or plasma 98 text: 100 - 108 mmol/L low Not Available Not Available 02/13/2025 22:23:25 02/14/20 25 02/13/2025 [facility] [employer] olic 1999 panel - Serum or Plasm a carbon dioxide, total [moles/volum e] in serum or plasma 26.9 text: 21 - 32 mmol/L Not Available Not Available 02/13/2025 22:23:25 02/14/20 25 02/13/2025 [facility] [employer] yogesh [employer] olic 1999 panel - Serum or Plasm a calcium [mass/volume ] in serum or plasma 8.8 text: 8.5 - 10.1 mg/dL Not Available Not Available 02/13/2025 22:23:25 02/14/20 25 02/13/2025 [facility] [employer] yogesh [employer] olic 1999 panel - Serum or Plasm a bilirubin.to timo [mass/volume ] in serum or plasma 0.6 text: 0.2 - 1.2 mg/dL Not Available Not Available 02/13/2025 22:23:25 02/14/20 25 02/13/2025 [facility] [employer] olic 1999 panel - Serum or Plasm a protein [mass/volume ] in serum or plasma 7.8 text: 6.4 - 8.2 g/dL Not Available Not Available 02/13/2025 22:23:25 02/14/20 25 02/13/2025 [facility] [employer] yogesh [employer] olic 2000 panel - Serum or Plasm a albumin [mass/volume ] in serum or plasma 3.2 text: 3.4 - 5.0 g/dL low Not Available Not Available 02/13/2025 22:23:25 02/14/20 25 02/13/2025 [facility] [employer] yogesh [employer] olic 1999 panel - Serum or Plasm a aspartate aminotransfe rase [enzymatic activity/vol ume] in serum or plasma 19 U/L low: 15U/Lh igh: 37U/L Not Available Not Available 02/13/2025 22:23:25 02/14/20 25 02/13/2025 Compr [employer] yogesh [employer] olic 1999 panel - Serum or Plasm a alanine aminotransfe rase [enzymatic activity/vol ume] in serum or plasma 22 U/L low: 14U/Lh igh: 55U/L Not Available Not Available 02/13/2025 22:23:25 02/14/20 25 02/13/2025 Compr [employer] yogesh [employer] olic 1999 panel - Serum or Plasm a alkaline phosphatase [enzymatic activity/vol ume] in serum or plasma 89 U/L low: 50U/Lh igh: 136U/L Not Available Not Available 02/13/2025 22:23:25 02/14/20 25 02/13/2025 [facility] [employer] 1999 panel - Serum or Plasm a anion gap in serum or plasma by calculation 8.1 text: 5 - 15 mmol/L Not Available Not Available 02/13/2025 22:23:25 02/14/20 25 02/13/2025 [facility] [employer] yogesh [employer] ic 1999 panel - Serum or Plasm a urea nitrogen/cre atinine [mass ratio] in serum or plasma 9.1 low: 6high: 26 Not Available Not Available 02/13/2025 22:23:25 02/14/20 25 02/13/2025 [facility] [employer] 1999 panel - Serum or Plasm a albumin/glob ulin [mass ratio] in serum or plasma 0.7 text: 1.0 - 2.0 ratio low Not Available Not Available 02/13/2025 22:23:25 02/14/20 25 02/13/2025 [facility] [employer] yogesh [employer] 1999 panel - Serum or Plasm a glomerular filtration rate [volume rate/area] in serum, plasma or blood by creatinine-b ased formula (CKD-epi 2020)/1.73 sq M 73 text: >90 mL/min /1.73 M2 low NOTE: eGFR is not calcu lated for patie nts <18 years of age. This is an estim ated GFR calcu latio n using the new CKD EPI creat inine equat ion witho ut race and so does not requi re a corre ction facto r for race. This estim ated GFR shoul d not be used for calcu latin g drug doses . Not Available Not Available 02/13/2025 22:23:25 02/14/20 25 02/13/2025 Compr ehens yogesh metab olic 2000 panel - Serum or Plasm a interpretati on and review of laboratory results Abnorm al Not Available Not Available 22:23:25 02/14/20 25 02/13/2025 CBC W Auto Diffe renti al panel - Blood leukocytes [#/volume] in blood by automated count 18.45 text: 4.4 - 11.0 x10'3/ uL high Not Available Not Available 02/13/2025 22:23:25 02/14/20 25 02/13/2025 CBC W Auto Diffe renti al panel - Blood erythrocytes [#/volume] in blood by automated count 4.73 text: 4.50 - 5.10 x10'6/ uL Not Available Not Available 02/13/2025 22:23:25 02/14/20 25 02/13/2025 CBC W Auto Diffe renti al panel - Blood hemoglobin [mass/volume ] in blood 11.1 text: 12.3 - 15.3 g/dL low Not Available Not Available 02/13/2025 22:23:25 02/14/20 25 02/13/2025 CBC W Auto Diffe renti al panel - Blood hematocrit [volume fraction] of blood by calculation 36.1 % low: 35.9%h igh: 44.6% Not Available Not Available 02/13/2025 22:23:25 02/14/20 25 02/13/2025 CBC W Auto Diffe renti al panel - Blood MCV [entitic mean volume] in red blood cells 76.3 text: 80.0 - 96.0 fL low Not Available Not Available 02/13/2025 22:23:25 02/14/20 25 02/13/2025 CBC W Auto Diffe renti al panel - Blood MCH [entitic mass] 23.5 pg low: 25.3pg high: 30.9pg low Not Available Not Available 02/13/2025 22:23:25 02/14/20 25 02/13/2025 CBC W Auto Diffe renti al panel - Blood MCHC [entitic mass/volume] in red blood cells 30.7 text: 31.0 - 34.1 g/dL low Not Available Not Available 02/13/2025 22:23:25 02/14/20 25 02/13/2025 CBC W Auto Diffe renti al panel - Blood RDW 16.8 % low: 12.4%h igh: 15.1% high Not Available Not Available 02/13/2025 22:23:25 02/14/20 25 02/13/2025 CBC W Auto Diffe renti al panel - Blood platelets [#/volume] in blood 298 text: 151 - 353 x10'3/ uL Not Available Not Available 02/13/2025 22:23:25 02/14/20 25 02/13/2025 CBC W Auto Diffe renti al panel - Blood platelet [entitic mean volume] in blood 9.3 text: 9.6 - 12.0 fL low Not Available Not Available 02/13/2025 22:23:25 02/14/20 25 02/13/2025 CBC W Auto Diffe renti al panel - Blood erythrocytes [morphology] in blood by automated count NORMAL Not Available Not Available 01/29 22:23:25 02/14/20 25 02/13/2025 CBC W Auto Diffe renti al panel - Blood platelet morphology finding [identifier] in blood NORMAL Not Available Not Available 22:23:25 02/14/20 25 02/13/2025 CBC W Auto Diffe renti al panel - Blood leukocyte morphology finding [identifier] in blood NORMAL Not Available Not Available 22:23:25 02/14/20 25 02/13/2025 CBC W Auto Diffe renti al panel - Blood lymphocytes/ leukocytes in blood by automated count 8 % low: 15.8%h igh: 45% low Not Available Not Available 02/13/2025 22:23:25 02/14/20 25 02/13/2025 CBC W Auto Diffe renti al panel - Blood neutrophils/ leukocytes in blood by automated count 85.1 % low: 42.1%h igh: 71.9% high Not Available Not Available 02/13/2025 22:23:25 02/14/20 25 02/13/2025 CBC W Auto Diffe renti al panel - Blood monocytes/le ukocytes in blood by automated count 6.1 % low: 5.7%hi gh: 12.5% Not Available Not Available 02/13/2025 22:23:25 02/14/20 25 02/13/2025 CBC W Auto Diffe renti al panel - Blood eosinophils/ leukocytes in blood by automated count 0.1 % low: 0%high : 5.6% Not Available Not Available 02/13/2025 22:23:25 02/14/20 25 02/13/2025 CBC W Auto Diffe renti al panel - Blood basophils/le ukocytes in blood by automated count 0.2 % low: 0%high : 1.3% Not Available Not Available 02/13/2025 22:23:25 02/14/20 25 02/13/2025 CBC W Auto Diffe renti al panel - Blood neutrophils [#/volume] in blood 15.7 text: 1.40 - 6.00 x10'3/ uL high Not Available Not Available 02/13/2025 22:23:25 02/14/20 25 02/13/2025 CBC W Auto Diffe renti al panel - Blood immature granulocytes /leukocytes in blood by automated count 0.5 % low: 0%high : 0.5% Not Available Not Available 02/13/2025 22:23:25 02/14/20 25 02/13/2025 CBC W Auto Diffe renti al panel - Blood lymphocytes [#/volume] in blood 1.48 text: 0.80 - 4.70 x10'3/ uL Not Available Not Available 02/13/2025 22:23:25 02/14/20 25 02/13/2025 CBC W Auto Diffe renti al panel - Blood interpretati on and review of laboratory results Abnorm al Not Available Not Available 22:23:25 02/14/20 25 02/13/2025 Heter ophil e Ab [Pres ence] in Serum heterophile Ab [presence] in serum NEGATI VE text: negati ve Not Available Not Available 02/13/2025 22:23:25 02/14/20 25 02/13/2025 Influ madan virus A+B Ag [Pres ence] in Speci men specimen source identified HAKEEM LIN AL SWAB Not Available Not Available 22:23:25 02/14/20 25 02/13/2025 Influ madan virus A+B Ag [Pres ence] in Speci men influenza virus A Ag [presence] in specimen NEGATI VE text: negati ve Not Available Not Available 02/13/2025 22:23:25 02/14/20 25 02/13/2025 Influ madan virus A+B Ag [Pres ence] in Speci men haemophilus influenzae B Ag [presence] in specimen NEGATI VE text: negati ve Not Available Not Available 02/13/2025 22:23:25 02/14/20 25 02/13/2025 Strep tococ cus pyoge lillian Ag [Pres ence] in Throa t streptococcu s pyogenes Ag [presence] in throat POSITI VE text: negati ve abnormal Not Available Not Available 02/13/2025 22:23:25 02/14/20 25 02/13/2025 Strep tococ cus pyoge lillian Ag [Pres ence] in Throa t interpretati on and review of laboratory results Abnorm al Not Available Not Available 22:23:25 12/24/19 25 12/22/2024 XR, cervi marisabel spine No observ ation record ed. [email or web address] [address], [place], [address], 12/23/2024 13:46:14 02/18/20 25 02/01/2025 home sleep testi ng (PROC ) No observ ation record ed. [facility] [address], [address], [place], [address], 02/20/2025 16:49:15 Result Notes None recorded. Problems Name Problem SNOMED Code Status Onset Date Resolution Date Notes Provider Name and Address Organization Details Recorded Time Body mass index 40+ - severely obese 457253654 Active 2024 Raul Chapman MA null, [place] - [facility] 5 15:00:56 Obese class III 827359065 Active 2024 GABRIEL Saleh Attn: Accountin g,[address] [facility], [place], [address], [place] [facility] 5 15:11:55 Positive screening for depression on PHQ-9 (Patient Health Questionnai re 9) 4103643165686 00 Active 2024 GABRIEL Saleh Attn: Accountbrooke g,[address] [facility], [place], [address], [place] [facility] 5 15:11:57 Gastroesoph ageal reflux disease 369011314 Active 2024 GABRIEL Saleh Attn: Accountin g,[address] [facility], [place], [address], [place] [facility] 5 15:12:21 Vitamin D deficiency 32826946 Active 2024 GABRIEL Saleh Attn: Accountin g,[address] [facility], [place], [address], [place] [facility] 5 15:12:22 Mild major depression 16167513 Active 2024 GABRIEL Saleh Attn: Accountin g,[address] [facility], [place], [address], [place] [facility] 5 15:12:43 Benign essential hypertensio n 4068435 Active 2024 GABRIEL Saleh Attn: Accountin g,[address] [facility], [place], [address], [place] [facility] 5 15:28:46 History of radiofreque ncy ablation operation for arrhythmia 612461566 Active 2024 GABRIEL Saleh Attn: Accountin g,[address] [facility], [place], [address], [place] [facility] 5 15:28:56 Microcytic anemia 527333249 Active 2024 GABRIEL Saleh Attn: Danilo ortiz,[address] [facility], [place], [address], [facility] 18:44:32 Problem Notes None recorded. Procedures Surgical History Date Name Laterality Status Provider Name and Address Organization Details Recorded Time Cholecystectomy completed Raul Chapman MA [facility] 01/16/2025 15:09:51 laparoscopic sleeve gastrectomy completed Raul Chapman MA [facility] 01/16/2025 15:10:00 section completed Raul Chapman MA [facility] 01/16/2025 15:10:04 Tubal Ligation completed Raul Chapman MA [facility] 01/16/2025 15:10:13 Tonsillectomy completed Raul Chapman MA [facility] 01/16/2025 15:10:18 Imaging Results None recorded. Procedure Notes None recorded. Medical Equipment None Reported. Allergies Allergen ID Allergen Name Allergen Category Reaction Reaction Severity Criticality Documentation Date Start Date Code Code System Note Provider Name and Address Organization Details Recorded Time 350582 doxycycli ne Not available Not available Not available Not available 01/16/2025 3640 RxNorm WILBER Alvares [facility] 15:02:13 944799 latex environme nt,medica tion Not available Not available Not available 01/16/2025 75979 91 RxNorm WILBER Alvares [place] 15:02:19 483986 lisinopri l medicatio n rash Not available [facility] 01/16/20252018 02602 RxNorm Hot face and arms, flush ing WILBER Alvares [place] 15:02:26 629949 acetamino phen / codeine medicatio n chest pain dyspnea Not available Not available [facility] 01/16/20252020 31891 9 RxNorm WILBER Alvares [place] 15:02:32 Medications Name Sig Start Date Stop Date Status Note LastModified by Organization Details LastModified Time atenolol 50 mg-chlorthal idone 25 mg tablet TAKE 1 TABLET BY MOUTH EVERY DAY active Not Available Not Available No t Available omeprazole 20 mg capsule,lilli yed release Take 1 capsule every day by oral route. active Not Available Not Available No t Available Vitamin D 50,000 unit capsule Take by oral route. active Not Available Not Available Not Available bupropion HCl XL 300 mg 24 hr tablet, extended release Take 1 tablet every day by oral route. active Not Available Not Available No t Available Zepbound 2.5 mg/0.5 mL subcutaneous pen injector ADMINISTER 2.5 MG UNDER THE SKIN EVERY WEEK active Not Available Not Available No t Available Vitals Date Recorded Systolic blood pressure Diastolic blood pressure Provider Name and Address Organization Details Last Updated DateTime 01/16/2025 160 mm[Hg] 90 mm[Hg] GABRIEL Saleh Attn: Accounting,[address] [place], [address], [facility] 01/16/2025 15:28:23 Date Recorded Body weight Respiratory rate Body mass index (BMI) Body height Oxygen saturation Oxygen saturation in Arterial blood by Pulse oximetry Heart rate Systolic blood pressure Diastolic blood pressure Provider Name and Address Organization Details Last Updated DateTime 703685. 15 g 18 /min 53.4 kg/m2 165.1 cm 98 % 98 % 74 /min 152 mm[Hg] 90 mm[Hg] Raul Chapman MA [facility] 15:07:22 Social History Question Answer Notes LastModified by Organizat ion Details LastModified Time Tobacco Smoking Status Never Smoker Raul Chapman MA null, [facility] 01/16/2025 15:11:59 Do You Have An Advance Directive? No Information not available 01/16/2025 Are You Blind Or Do You Have Difficulty Seeing? Yes Glasses Information not available 01/16/2025 What Is Your Level Of Caffeine Consumption? Moderate Coffee Information not available 01/16/2025 In The 14 Days Before Symptom Onset, Have You Had Close Contact With A Laboratory-[facility]-19 While That Case Was Ill? No Information not available 01/16/2025 In The 14 Days Before Symptom Onset, Have You Had Close Contact With A Person Who Is Under Investigation For COVID-19 While That Person Was Ill? No Information not available 01/16/2025 Have You Been To An Area Known To Be High Risk For COVID-19? No Information not available 01/16/2025 Are You Deaf Or Do You Have Serious Difficulty Hearing? No Information not available 01/16/2025 What Type Of Diet Are You Following? REGULAR Information not available 01/16/2025 Are There Any Guns Present In Your Home? No Information not available 01/16/2025 What Was The Date Of Your Most Recent Tobacco Screening? 01/16/2025 Information not available 01/16/2025 Do You Use Your Seat Belt Or Car Seat Routinely? Yes Information not available 01/16/2025 Do You Have Smoke And Carbon Monoxide Detectors In Your Home? Yes Information not available 01/16/2025 Do You Use Sunscreen Routinely? Yes Information not available 01/16/2025 Has Tobacco Cessation Counseling Been Provided? No Information not available 01/16/2025 Sex: Female Functional Status Question Answer Note LastModified by Organizat ion Details LastModified Time Do you or have you ever used any other forms of tobacco or nicotine? No Information not available 01/16/2025 What is your level of alcohol consumption? Occasional Information not available 01/16/2025 Are you currently employed? Yes Information not available 01/16/2025 Are you able to care for yourself? 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 None Information not available 01/16/2025 Mental Status None recorded. Family History Relationship Description Onset Age of this Age Resolved Age Notes LastModified by Organization Details LastModified Time Mother Asthma [email or web address] Not available 01/16/2025 15:10:58 Mother Depressive disorder tcarterma Not available 2024 15:11:06 Mother Diabetes mellitus [email or web address] Not available 2024 15:11:11 Mother Heart disease tcarterma Not available 2024 15:11:17 Mother Hypertensive disorder tcarterma Not available 2024 15:11:30 Mother Hypercholest erolemia tcarterma Not available 2024 15:11:39 Mother Kidney disease tcarterma Not available 2024 15:11:48 Father Asthma tcarterma Not available 01/16/2025 15:10:58 Father Depressive disorder tcarterma Not available 2024 15:11:06 Father Heart disease tcarterma Not available 2024 15:11:17 Father Hypertensive disorder tcarterma Not available 2024 15:11:30 Father Hypercholest erolemia tcarterma Not available 2024 15:11:39 Sister Hypertensive disorder tcarterma Not available 2024 15:11:30 Medical History Condition Response Coronary Artery Disease N Other N Atrial Fibrillation N High Blood Pressure Y Kidney or Bladder Problems N Thyroid Problems N GI Problems N Depression Y COPD N Blood Clots N Have you had a mammogram in the last yea r? N Skin Problems N Anemia N Heart Attack (OK) N Anxiety Disorder N Diabetes N Muscle, Joint, or Bone Problems N Seizures/Epilepsy N Have you had a colonoscopy in the last 1 0 years? N Acid Reflux (GERD) Y Cancer N Stroke N Asthma N Allergies N Have you had a PSA blood test in the las t year? N High Cholesterol Y Hepatitis N Liver Disease N Headaches N Heart Failure N Osteoporosis N Gynecological History Statement/Question Response Menses Monthly N Duration of Flow (days) Current Control Method None Obstetrics History GPAL:G 2 P 2 0 0 2 Type Value Multiple Births 0 Full Term 2 Induced 0 Spontaneous 0 Premature 0 Living 2 Total 2 Past Encounters Encounter ID Performer Location Encounter Start Date Encounter Closed Date Diagnosis/Indication Diagnosis SNOMED-CT Code Diagnosis ICD10 Code Diagnosis Note [id number] Abner Herron MD [facility] [place] [address] [place] [address] 01/16/2025 14:56:02 01/16/2025 15:37:40 Obese class III 348680299 E66.813 BMI 53.4 Positive s creening for depression on PHQ-9 (Patient Health Questionnaire 9) 8334482994 36579 Z13.31 Positive screening today on questionna karlos. Patient is on bupropion XL 300 mg daily and does feel stable Adult heal th examination 021003300 Z00.00 Annual wellness exam completed Gastroesop hageal reflux disease 733281848 K21.9 Patient is taking omeprazole 20 mg daily for chronic reflux management Vitamin D deficiency 347 97059 E55.9 Patient is on high-dose vitamin-D weekly supplement Mild major depression 87 589331 F32.0 Stable on the bupropion XL 300 mg daily Benign ess ential hypertension 4473951 I10 Blood pressure is elevated 160/90. We are going to start a combinatio n of atenolol 50/chlorth alidone 25 mg daily which will help with hypertensi on and overall heart rate and give diuretic benefit. History of radiofrequency ablation operation for arrhythmia 011487604 Z98.890 History of cardiac ablation noted Microcytic anemia 816538 007 D50.9 Microcytic anemia noted on her labs from her gynecologi st. We will check full iron studies and check for B12 deficiency Diabetes m ellitus screening 303070500 Z13.1 Diabetes screening ordered Suspected respiratory disease 682945630 R29.818 Refer for home sleep study testing with a high suspicion for sleep apnea Health Concerns Section Related Observation LastModified by Organization Detai ls LastModified Time None Recorded Concern Status LastModified by Organization Details LastModified Time None Recorded Advance Directives Directive N: Payers Insurance Date Sequence Insurance Name Policy Number Policy Squires Covered Member ID Squires Member ID Guarantor Name 01/30/2025 1 [employer] [id number] Gina Davis [id number] Gina Davis Notes Date Note Type Note Provider Name and Address Organization Details Recorded Time 01/16/2025 text/html Patient has not been seen by provider in over 3 years and is coming in for reestablishment of the new office. She has a history of chronic GERD vitamin-D deficiency mild major depression and does have history of cardiac ablation. She also reports a little bit of anemia on recent labs that she had with her doctor of nursing practice. Blood pressure is elevated today GABRIEL Saleh Attn: Accounting[address] [facility], [place], [address], [facility] 01/29/2025 18:45:09 OBGyn Episode No OBEpisode recorded.
--- OUTSIDE RECORDS SUMMARY | 2025-02-27 11:26 | XMS_ITS | Clinical Summary ---
Author Organization [facility] Address [address] [address] Care Team Providers Care Load Test Mechanic Name Role Phone Unavailable Primary Care Provider Unavailabl e Medications semaglutide, weight loss, (Wegovy) 1.7 mg/0.75 mL Pen Injector Inject 1 pen injector subcutaneously once a week. 3 mL 4 Active tirzepatide, weight loss, (Zepbound) 2.5 mg/0.5 mL Pen Injector Inject 2.5 mg by subcutaneous injection every 7 days. 2 mL 07/17/2024 2:28 PM REHABILITATION PHYSICIAN 4 Active tirzepatide, weight loss, (Zepbound) 5 mg/0.5 mL Pen Injector Inject 5 mg by subcutaneous injection every 7 days. 2 mL 08/02/2024 5:43 PM REHABILITATION PHYSICIAN 4 Active tirzepatide, weight loss, (Zepbound) 5 mg/0.5 mL Pen Injector Inject 5 mg by subcutaneous injection every 7 days. 2 mL 4 Active tirzepatide, weight loss, (Zepbound) 7.5 mg/0.5 mL Pen Injector Inject 7.5 mg under the skin every 7 days. 2 mL 1 08/03/2024 6:26 PM REHABILITATION PHYSICIAN 4 Active tirzepatide, weight loss, (Zepbound) 7.5 mg/0.5 mL Pen Injector Inject 7.5 mg by subcutaneous injection every 7 days. 2 mL 3 5 Active Encounters Date Type Department Care Team Description 02/14/2025 External Device Data ST[facility] ABSTRACTION Provider, Abstract 2025 External Device Data [facility] ABSTRACTION Provider, Abstract 01/18/2025 External Device Data [facility] ABSTRACTION Provider, Abstract 01/17/2025 External Device Data [facility] ABSTRACTION Provider, Abstract [...] ID:[id number] Type:RX Commercial Address: [facility] [employer] DATA Medicare Part B RX PHARMACY [employer] Commercial RX [employer] Commercial
== END 2025-02-27 10:49 | disposition home or self-care (01) ==
LOC: ANHIMG 10:49
PROVIDERS: PCP Physician Assistant; Visit Provider Obstetrics & Gynecology
DX: Z12.31 Encounter for screening mammogram for malignant neoplasm of breast (principal)
CPT/HCPCS: 77063; 77067

== ENCOUNTER 2025-08-03 01:03 | Day surgery (SDC) | payer BC, SELFPAY ==
--- OUTSIDE RECORDS SUMMARY | 2024-11-26 03:00 | XMS_ITS ---
Author Organization [facility] Address [address], [place] [id number] Care Team Providers Care Soil Science Teacher Name Role Phone Migration, Provider Unavailable Unavailable REASON FOR VISIT EMR-Lemuel Encounters Encounter Location Date Provider [facility] [address] [place] [address], [place] [id number] 11/26/2024 Prov ider Migration Plan Of Treatment No Information Progress Notes * JAREK ALAN ADOB:[birth year] (40 yo Other)Acc No.[id number]:11/26/2024 Patient: Jaquan JAREK BARRON :1985 A ge:39 Y S ex:Unknown Address:[address], [place], [address] Subjective: * Chief Complaints: * E MR-Lemuel * * Date:
--- OUTSIDE RECORDS SUMMARY | 2024-11-27 03:00 | XMS_ITS ---
Author Organization [facility] Address [address] [place] [address], [place] [id number] Care Team Providers Care Chief Meteorologist Name Role Phone Migration, Provider Unavailable Unavailable REASON FOR VISIT EMR-Lemuel Encounters [facility] Date [facility] [address] [place], [place] [id number] 11/27/2024 Prov ider Migration Plan Of Treatment No Information Progress Notes * JAREK ALAN ADOB:[birth year] (40 yo Other)Acc No.[id number]:11/27/2024 Patient: Jaquan JAREK BARRON :1985 A ge:39 Y S ex:Unknown Address:[address], [place], [address] Subjective: * Chief Complaints: * E MR-Lemuel * * Date:
[2025-08-02 09:45] VITALS: BMI 48.7
--- NOTE | 2025-08-02 10:16 | PC.NURSE ---
[facility] has started construction of its new state of the art ER which will open Spring 2026. With this, we anticipate parking may be a challenge for some our surgical patients and families. Parking spaces are limited but are available for all Surgical, obstetrics, and ER patients sharing this lot. If you arrive and find you are having a hard time finding a parking space, please note that we understand the challenges, please drive around the hospital and park near Hospital Entrance 1. When you enter this entrance, you can ask a volunteer to direct or take you back to the surgical waiting area to check in. We appreciate everyone?s understanding of these expected challenges while we build for your future. Report to the Outpatient Waiting Room, entrance under the green pavilion located off [address], at time ___12:45PM__ on date __08/03/25___. Planned Procedure Time: _2:45PM____.? Time changes happen often and if your time is changed the preop area will call you the afternoon before. - You and your visitor will be asked to self-screen and do not enter if you have any COVID symptoms. Please call surgeon if you need to reschedule. - A mask is optional within the hospital at this time. Patients may have clear liquids (water, carbonated beverages, clear teas, apple juice) until 3 hours prior to surgery (11:45AM) with a maximum of 20 ounces. - No food from midnight until time of surgery and no smoking, or chewing tobacco (or any form of nicotine). No chewing gum, candy or mints. Take only the following medications with a SIP of water on the morning of surgery: __BIRTH CONTROL PILL. MAY TAKE ALPRAZOLAM NEEDED FOR ANXIETY_ DO NOT STOP ANY OF YOUR OTHER PRESCRIPTION MEDICATIONS PRIOR TO SURGERY EXCEPT THE FOLLOWING Hold all vitamins and supplements for 3 days per anesthesiologist. Medications to discontinue per physician HOLD ZEPBOUND STARTING NOW Date to take last dose Please no make-up, nail albanian, hairspray, perfume, deodorant, or body powder the day of surgery.? No jewelry (including any body piercings) or valuables the day of surgery, leave them at home.? Please take a shower or bath the night before, or the morning of, surgery with an antibacterial soap.? Wear comfortable, loose fitting clothing.? Children are encouraged to wear pajamas. - Jewelry must be removed prior to entering the operating room.? Rings and piercings that are not removed may be cut off. - The hospital will not accept responsibility for valuables.? - Please leave all valuables, including medications, at home the day of surgery. If you are going home after surgery, a licensed mixer driver must drive you home.? - NO public transportation without another adult if you receive anesthesia. - We recommend that an adult stay with you for 24 hours following discharge. - We also recommend that you do not drive, make important decision, drink alcoholic beverages, or take any drugs that were not prescribed by your health care provider for at least 24 hours after your discharge time. For Pediatric surgeries, we recommend two adults accompany the child home. Follow any additional instructions given to you from your surgeon. Telephone instructions given to ____PATIENT and asked if any additional questions and then verbalized understanding. Patient advised to call surgeon office or pre surgery nurse liaison [phone] if any additional questions.
--- OUTSIDE RECORDS SUMMARY | 2025-08-03 01:07 | XMS_ITS | Patient Health Record ---
Author Organization [facility] Address [address], [place] [id number] Care Team Providers Care Blade Bender Furnace Tender Name Role Phone Migration, Provider Unavailable Unavailable Reason For Referral No Information Encounters Encounter Location Date Provider Diagnosis [facility] [address], [place] [id number] 11/26/2024 Prov ider Migration [facility] [address], [place] [phone] 11/27/2024 Prov ider Migration Plan Of Treatment No Information
--- OUTSIDE RECORDS SUMMARY | 2025-08-03 01:07 | XMS_ITS | Clinical Summary ---
Author Organization [employer] [facility] Address [address] [place] [address] Care Team Providers Care Regional Tanker Truck Driver Name Role Phone Unavailable Primary Care Provider Unavailabl e Medications semaglutide, weight loss, (Wegovy) 1.7 mg/0.75 mL Pen Injector Inject 1 pen injector subcutaneously once a week. 3 mL 4 Active tirzepatide, weight loss, (Zepbound) 2.5 mg/0.5 mL Pen Injector Inject 2.5 mg by subcutaneous injection every 7 days. 2 mL 07/17/2024 2:28 PM HANDKERCHIEF PRESSER 4 Active tirzepatide, weight loss, (Zepbound) 5 mg/0.5 mL Pen Injector Inject 5 mg by subcutaneous injection every 7 days. 2 mL 08/02/2024 5:43 PM HANDKERCHIEF PRESSER 4 Active tirzepatide, weight loss, (Zepbound) 5 mg/0.5 mL Pen Injector Inject 5 mg by subcutaneous injection every 7 days. 2 mL 4 Active tirzepatide, weight loss, (Zepbound) 7.5 mg/0.5 mL Pen Injector Inject 7.5 mg under the skin every 7 days. 2 mL 1 08/03/2024 6:26 PM HANDKERCHIEF PRESSER 4 Active tirzepatide, weight loss, (Zepbound) 7.5 mg/0.5 mL Pen Injector Inject 7.5 mg by subcutaneous injection every 7 days. 2 mL 3 5 Active tirzepatide, weight loss, (Zepbound) 7.5 mg/0.5 mL Pen Injector Inject 0.5 mL (7.5 mg) by subcutaneous injection every 7 days. 2 mL 07/10/2025 6:26 PM HANDKERCHIEF PRESSER 5 Active Encounters Date Type Department Care Team Description 06/20/2025 External Device Data [facility] ABSTRACTION Provider, Abstract [...] (1 of 3 - 19+ 3-dose series) 12/30 HPV/Cotest (21-29) 01/25/2004 HPV VACCINES (1 - 3-dose SCDM series) 2010 CERVICAL CANCER SCREENING 2013 HPV/Cotest (30-65) 2013 PAP SMEAR 2013 BREAST CANCER SCREENING 2023 INFLUENZA VACCINE (#1) 2025 Insurance RX [employer] RX Member Subscriber Plan / Payer (Ef fective for All Dates) Name:Gina Davis Relation to Subscriber:Self Name:Gina Davis Payer ID:Not on file Group ID:[id number] Type:RX [employer] Address: [facility] [employer] DATA Medicare Part B RX PHARMACY [employer] Commercial RX [employer] Commercial
--- OUTSIDE RECORDS SUMMARY | 2025-08-03 01:07 | XMS_ITS | Clinical Summary ---
Author Organization [facility] [place] Address [address] [place] [address] Care Team Providers Care Coder Operator Name Role Phone Monica Olivo Primary Care Pr ovider Source Comments [facility],non-owned Affiliates and Associated Physician Practices is amultiple site organization consisting of ambulatory clinics and hospital sitesin [place], [place], [place] and [place]. This disclosure is being madepursuant to the Care Everywhere program and may not contain all information available regarding this patient. Last updated 18.[facility] [place] Allergies Active Allergy Reactions Criticality Noted Date [...] 19+ 3-dose series) 2002 Cervical Cancer Screening 01/25/2004 PAP SMEAR 01/25/2004 HPV VACCINE (1 - 3-dose SCDM series) 2010 PAP with HPV 2013 SCREENING FOR DIABETES 05/19/2023 9, 06/09/2019, 06/08/2019, Additional history exists EGD SURVEILLANCE 05/09/2024 03/14/2022, , 08/01/2020, Additional history exists DEPRESSION SCREENING 08/31/2024 COVID-19 VACCINE ( season) 2025 09/10/2020, 08/20/2020 INFLUENZA VACCINE (#1) 2025 06/22/2020, 2015 ZOSTER VACCINE (1 of 2) 2033 HIB [...] by the physician, the nurse and the golf ball molder in the procedure room. Mental Status Examination: [...] the patient. Procedure Code(s): --- Professional --- 27100, Esophagogastroduod enoscopy, flexible, transoral; diagnostic, including collection of specimen(s) by brushing or washing, when performed (separate procedure) --- Technical --- 96610, Esophagogastroduod enoscopy, flexible, transoral; diagnostic, including collection of specimen(s) by brushing or washing, when performed (separate procedure) Diagnosis Code(s): --- Professional --- Z98.84, Bariatric surgery status Z15.09, Genetic susceptibility to other malignant neoplasm --- Technical --- Z98.84, Bariatric surgery status Z15.09, Genetic susceptibility to other malignant neoplasm CPT copyright 2019 [employer]. All rights reserved. The codes documented in this report are preliminary and upon projection technician review may be revised to meet current compliance requirements. Dr. Rebel Lennon MD Rebel Lennon MD 03/14/2022 10:15:57 AM This report has been signed electronically. Number of Addenda: 0 Note Initiated On: 03/14/2022 9:12 AM [facility] 03/14/2022 9:12 AM CDT us Rebel Lennon MD GI PROCEDURE ORDERABLES Messi sonny Result - Final [facility] [place] [address] * (ABNORMAL) BASIC METABOLIC PANEL (CALCIUM TOTAL) (06/09/2019 4:36 AM CDT) Glucose 112(H) 74 - 106 mg/dL 06/09/2019 5:16 AM CDT [facility] Sodium 135(L) 136 - 145 mmol/L 06/09/2019 5:16 AM CDT [facility] Potassium 4.2 3.5 - 5.1 mmol/L 06/09/2019 5:16 AM CDT [facility] Chloride 102 98 - 107 mmol/L 06/09/2019 5:16 AM CDT [facility] CO2 25 23 - 31 mmol/L 06/09/2019 5:16 AM CDT [facility] Calcium 9.2 8.4 - 10.2 mg/dL 06/09/2019 5:16 AM CDT [facility] Anion Gap 8 8 - 16 mmol/L 06/09/2019 5:16 AM CDT [facility] BUN 6(L) 7 - 18.7 mg/dL 06/09/2019 5:16 AM CDT [facility] Creatinine 0.73 0.57 - 1.11 mg/dL 06/09/2019 5:16 AM CDT [facility] eGFR by MDRD >60 >60 mL/min/1.7 3m2 06/09/2019 5:16 AM CDT [facility] eGFR by MDRD >60 >60 mL/min/1.7 3m2 06/09/2019 5:16 AM CDT [facility] Blood BLOOD SPECIMEN / Unknown Venipuncture / Unknown 06/09/2019 4:36 AM CDT 06/09/2019 4:47 AM CDT us Nhan Gilliland MD LAB - CHEMISTRY ORDERABLES F inal Result [facility] [address] [place] [address] from Last 3 Months or Most Recently Relevant to Health Maintenance Insurance AETNA AETNA Advance Directives * Full Code (Latest Code Status on File) Date Activated Date Inactivated Comments 06/08/2019 1:37 PM 06/09/2019 6:22 PM Care Teams Coder Operator Relationship Specialty Start Date End Date Monica Olivo PA [address] [place] [address] [place] [id number] PCP - General Physician Household Appliance Assembler 02/28/19
--- NOTE | 2025-08-03 08:35 | PM.IMHP2 ---
H&P: HPI History of Present Illness Date/Time: 08/03/25 08:35 Chief Complaint: Persistent bleeding Narrative: 37 y/o who has had a tubal ligation and endometrial ablation several years ago. In 2022 she underwent hysteroscopy with D&C because of persistent heavy bleeding. Her symptoms improved. However, several months ago she began to have bleeding again. This bleeding has been nearly daily come and is sometimes heavy and painful, and has not responded to treatment with oral contraceptives. Ultrasound exam on 07/17/2025 shows an unremarkable myometrium, with an endometrial complex is 1cm thick. The endometrial cavity also demonstrates a 1.3cm focus of echogenic material consistent with a likely blood clot. Bilateral ovaries are unremarkable, and there is no free fluid noted. She desires surgical management of her problem.. Review of Systems Review of Systems: All systems reviewed & are unremarkable except as noted in HPI and below PMFSH Past Medical History Medical History Depression Anxiety Morbid obesity GERD (gastroesophageal reflux disease) Surgical History Surgical History History of dilatation and curettage History of hysteroscopy History of delivery History of tonsillectomy History of cholecystectomy History of cardiac radiofrequency ablation History of bilateral tubal ligation History of endometrial ablation H/O gastric bypass Family History Family History Father Hypertension Family history of elevated blood lipids Family history of cardiovascular disease Family history of throat cancer Mother Hypertension Grandparent Cerebrovascular accident Family history of malignant neoplasm of breast Family history of coronary artery disease Diabetes mellitus Other Family history of arthritis Family history of congestive heart failure Family history of malignant melanoma Social History Social History Smoking status: Never smoker Second hand tobacco smoke exposure: No Alcohol intake: current Drinks per week: 5 Substance use: never Substance use type: does not use Living arrangements: with family Additional living arrangements comments: [place] Spiritual care concerns: No Meds Home Medications and Allergies Home Medications ?Medication ?Instructions ?Recorded ?Confirmed ?Type omeprazole 20 mg tablet,delayed 20 mg PO DAILY 07/12/20 08/02/25 History release tirzepatide (weight loss) 5 mg/0.5 5 mg subcut WEEKLY 04/13/25 08/02/25 History mL subcutaneous pen injector (Zepbound) alprazolam 0.5 mg tablet 0.5 mg PO DAILY PRN anxiety 08/02/25 08/02/25 History desogestrel 0.15 mg-ethinyl 1 tablet PO DAILY 08/02/25 08/02/25 History estradiol 0.03 mg tablet (Isibloom) ferrous sulfate 325 mg (65 mg 325 mg PO DAILY 08/02/25 08/02/25 History iron) tablet,delayed release hydrochlorothiazide 12.5 mg tablet 12.5 mg PO QAM 08/02/25 08/02/25 History Allergies Allergy/AdvReac Type Severity Reaction Status Date / Time codeine Allergy Severe Other Verified 08/02/25 09:43 latex Allergy Mild RASH Verified 08/02/25 09:43 shellfish derived Allergy Mild Swelling Verified 08/02/25 09:43 Exam Const: Orientation/consciousness: patient oriented x3 Other: Well-developed, well-nourished female in no acute distress. Neck: Thyroid: thyroid normal Lymphatic: no lymphadenopathy noted (in neck, axilla or inguinal nodes) Resp: Effort & Inspection: normal respiratory effort Auscultation: clear to auscultation bilaterally Cardio: Rate: regular rate Rhythm: regular rhythm Heart sounds: S1 normal heart sound present and S2 normal heart sound present GI: Other: ABD: Soft, nontender, nondistended. No guarding or rebound tenderness. No hepatosplenomegaly. : General: Yes no CVA tenderness Other: External genitalia: normal female hair distribution, without lesion. Urethral meatus: no lesion, non prolapsed. Bladder: no mass, nontender Vagina: well-estrogenized, without lesion or discharge. No cystocele or rectocele. Cervix: no lesion or discharge. Uterus: small, anteverted, freely mobile, nontender Adnexa: no mass or tenderness. Anus/perineum: no lesions, nontender Back/Spine/Pelvis: Back: no CVA tenderness Skin: General skin exam: normal color and no rashes or lesions noted Neuro: General: patient oriented x3 Extrem: Other: Extremities: nontender with no edema Psych: Mental Status: mental status grossly normal Affect: normal affect Assessment and Plan Assessment and plan (1) Menometrorrhagia: Code(s): N92.1 - Excessive and frequent menstruation with irregular cycle Status: Acute Assessment and Plan: A: Menometrorrhagia. P: We reviewed medical as well surgical approaches to her problem. She prefers the latter. I have offered hysteroscopy with D&C. She understands risks of surgery to include risks of anesthesia, risks of pain, infection, bleeding, blood products, thromboembolic phenomena and damage to adjacent structures such as bowel, bladder, ureters, blood vessels and nerves. She understands all these risks and elects to proceed with surgery.
[2025-08-03 13:05] VITALS: BP 150/77; PULSE 74; RESP 16; TEMP 36.1; O2SAT 100
[2025-08-03] MEDS: LACTATED RINGERS 1,000 ML 30 ML IV CONT (13:05)
[2025-08-03] MEDS: ACETAMINOPHEN 500 MG TABLET 1000 MG PO (13:05)
--- NOTE | 2025-08-03 13:15 | WPDANESEPPF ---
Anes - Initial Pre Proc Eval Procedure: Operation Date: 08/03/25 14:45 Proposed Procedures p Hysteroscopy Dilation and Curettage with Removal of any Endometrial Lesions as Needed - Home Anderson MD Date/Time: 08/03/25 13:15 Surgeon: Home Anderson MD Pre Op Diagnosis: menometrorrhagia Patient Data Age: 40 Gender: F Height: 1.66 m Weight: 135 kg Allergies Allergy/AdvReac Type Severity Reaction Status Date / Time codeine Allergy Severe Other Verified 08/02/25 09:43 latex Allergy Mild RASH Verified 08/02/25 09:43 shellfish derived Allergy Mild Swelling Verified 08/02/25 09:43 Home Medications ?Medication ?Instructions ?Recorded ?Confirmed ?Type omeprazole 20 mg tablet,delayed 20 mg PO DAILY 07/12/20 08/02/25 History release tirzepatide (weight loss) 5 mg/0.5 5 mg subcut WEEKLY 04/13/25 08/02/25 History mL subcutaneous pen injector (Zepbound) alprazolam 0.5 mg tablet 0.5 mg PO DAILY PRN anxiety 08/02/25 08/02/25 History desogestrel 0.15 mg-ethinyl 1 tablet PO DAILY 08/02/25 08/02/25 History estradiol 0.03 mg tablet (Isibloom) ferrous sulfate 325 mg (65 mg 325 mg PO DAILY 08/02/25 08/02/25 History iron) tablet,delayed release hydrochlorothiazide 12.5 mg tablet 12.5 mg PO QAM 08/02/25 08/02/25 History Patient hx anesthesia problems: none Family hx anesthesia problems: none Results Review: All pre-operative results and documents have been reviewed as part of the pre-operative evaluation. [facility] Past Medical History Medical History Depression Anxiety Morbid obesity GERD (gastroesophageal reflux disease) Surgical History Surgical History History of dilatation and curettage History of hysteroscopy History of delivery History of tonsillectomy History of cholecystectomy History of cardiac radiofrequency ablation History of bilateral tubal ligation History of endometrial ablation H/O gastric bypass Family History Family History Father Hypertension Family history of elevated blood lipids Family history of cardiovascular disease Family history of throat cancer Mother Hypertension Grandparent Cerebrovascular accident Family history of malignant neoplasm of breast Family history of coronary artery disease Diabetes mellitus Other Family history of arthritis Family history of congestive heart failure Family history of malignant melanoma Social History Social History Smoking status: Never smoker Second hand tobacco smoke exposure: No Alcohol intake: current Drinks per week: 5 Substance use: never Substance use type: does not use Living arrangements: with family Additional living arrangements comments: [place] Spiritual care concerns: No Anes - Eval Final PreProcedure Day of Procedure 08/03/25 13:15 Patient weight: morbidly obese Heart: regular rate and rhythm Lungs: clear to auscultation Airway: Mallampati scale class II Neurological: alert and oriented Last oral intake: >/= 8 hours ASA classification: III Emergent: no Anesthetic plan: proceed Anesthesia type and monitoring: general GIVS and standard monitoring Results Review: All pre-operative results and documents have been reviewed as part of the pre-operative evaluation. Informed Consent: The patient's anesthetic plan and its attendant risks and benefits were discussed with the patient/family/POA. Questions were solicited and answers provided to the satisfaction of the patient/family/POA.
--- NOTE | 2025-08-03 13:21 | WPDHPUPDATE1 ---
History and Physical Update Update Date/Time: 08/03/25 13:21 History and Physical has been reviewed, including an updated exam of the patient. There are NO changes in the patient's condition. Risks, benefits, and alternatives have been discussed and questions answered. Patient agrees to proceed with procedure.
[2025-08-03] MEDS: LIDOCAINE 1% LOCAL INJ 10 ML VIAL INFILTRATE (13:45)
--- NOTE | 2025-08-03 13:46 | S_PTH ---
PATIENT: Gina Davis LOC: [facility]#:[id number] AGE/SX: 40/F ROOM: RE08/03/[address]: Home Anderson MD : 1985 BED: DIS: 08/03/2025 SPEC #: [id number] RECD: 08/03/25 14:28 STATUS: ELIUD REShelbie #: [id number] JEFFERY: 08/03/25 13:[address]: Home Anderson DEPT: [facility] Surgical RECD BY: Alessia Moreno ENTERED: 08/03/25 14:28 SP TYPE: Surgical OTHR DR: Monica Garcia, PA-C Tissues: A - Endometrial Curettings Procedures: Hematoxylin and Eosin Stain Gross and Microscopic Level 4
--- NOTE | 2025-08-03 13:53 | W.PM.PROC2 ---
Procedure Note - Detailed Date of Procedure 08/03/25 Pre-op Diagnosis Menometrorrhagia Post-op Diagnosis Same Procedure Performed Dilation and suction curettage Surgeon Home Anderson MD Anesthesia MAC and Local (1% lidocaine) Findings Unremarkable endometrium. Both tubal ostia seen. Description of Procedure The patient was taken to the operating room where she was prepared and draped in the usual sterile fashion in the dorsal lithotomy position. The bladder was drained with a red rubber catheter. A sterile speculum was placed into the vagina. The anterior lip of the cervix was grasped with single-tooth tenaculum. Ten mL of 1% lidocaine was administered in a paracervical block. The cervix was then gently dilated using Hegar dilators until a 6 mm dilator could be passed. Hysteroscopy was performed using sterile saline as a distention medium. Findings are as noted above. Sharp curettage was then performed, and endometrial curettings were collected on a Telfa pad and passed off to be sent to pathology. Hemostasis was excellent. Sponge, lap, needle and instrument counts were correct. The patient was awakened and taken to the recovery room in stable condition. I was present and scrubbed through the entire procedure. Estimated Blood Loss 5 Drains No Packing No Pathology Yes (Endometrial curettings) Complications None Condition Stable Disposition PACU [facility] Billing Surgery - Charge Forward: Surgery Billing
[2025-08-03 13:55] VITALS: BP 112/61; PULSE 82; O2SAT 98
[2025-08-03 14:00] VITALS: BP 118/65; PULSE 76; O2SAT 98
[2025-08-03 14:30] VITALS: BP 135/73; PULSE 67
== END 2025-08-03 14:55 | disposition home or self-care (01) ==
PROVIDERS: PCP Physician Assistant; Visit Provider Obstetrics & Gynecology
PROC: 0U5B8ZZ Destruction of Endometrium, Via Natural or Artificial Opening Endoscopic (ICD-10-PCS; CPT 58563; principal; 2025-08-03 14:45)
DX: N92.1 Excessive and frequent menstruation with irregular cycle (principal); E66.01 Morbid (severe) obesity due to excess calories; Z68.42 Body mass index [BMI] 45.0-49.9, adult
CPT/HCPCS: 58558; 88305; A9270; J2003; J2250; J2704; J3010; J7120